=== PATIENT | male | born 1970 | race Caucasian/White ===

== ENCOUNTER → 2016-07-20 | Outpatient (CLI) | payer MEDICAID, OTHER ==
--- NOTE | 2016-07-20 16:23 | REP ---
Chest two views HISTORY: Bronchitis Comparison: None The lungs are clear. The heart is normal in size. The pulmonary vasculature is normal in appearance. Degenerative change is present in the thoracic spine. IMPRESSION: No acute disease.
== END ==
LOC: M CLY 15:43
PROVIDERS: ATTEND Nurse Practitioner Family
DX: J40 Bronchitis, not specified as acute or chronic (principal)

== ENCOUNTER → 2018-01-19 | Outpatient (REF) | payer MEDICAID | LOC: M SFHCCLAY 10:24 | DX: I48.0 Paroxysmal atrial fibrillation (principal) ==

== ENCOUNTER → 2018-01-26 | Outpatient (REF) | payer MEDICAID | LOC: M SFHCCLAY 09:12 | DX: I48.0 Paroxysmal atrial fibrillation (principal) ==

== ENCOUNTER → 2018-02-13 | Outpatient (CLI) | payer MEDICAID, OTHER | LOC: M CARPUL 10:27 | DX: I48.0 Paroxysmal atrial fibrillation (principal) | CPT/HCPCS: 93306 ==

== ENCOUNTER → 2018-02-16 | Outpatient (REF) | payer OTHER, MEDICAID ==
[2018-02-16 18:36] LABS: ALBUMIN 4.5 GM/DL (3.2-5.2); ALBUMIN/GLOBULIN RATIO 1.29 (1.00-1.93); ALKALINE PHOSPHATASE 66 U/L (45-117); ALT/SGPT 55 U/L (12-78); ANION GAP 5 MEQ/L (8-16); AST/SGOT 23 U/L (7-37); BILIRUBIN,TOTAL 0.9 MG/DL (0.2-1.0); BLOOD UREA NITROGEN 24 MG/DL (7-18); CALCIUM LEVEL 9.4 MG/DL (8.5-10.1); CARBON DIOXIDE LEVEL 30 MEQ/L (21-32); CHLORIDE LEVEL 104 MEQ/L (98-107); CHOLESTEROL LEVEL 142 MG/DL (<200); CHOLESTEROL RISK RATIO 2.253 (<5); CREATININE FOR GFR 0.78 MG/DL (0.70-1.30); FREE T4 0.97 NG/DL (0.76-1.46); GLOMERULAR FILTRATION RATE > 60.0 (>56); GLUCOSE, FASTING 99 MG/DL (70-100); HDL CHOLESTEROL 63 MG/DL (>40); LDL CHOLESTEROL 74 MG/DL (<100); NON-HDL-C 79 MG/DL; POTASSIUM SERUM 5.1 MEQ/L (3.5-5.1); SODIUM LEVEL 139 MEQ/L (136-145); THYROID STIMULATING HORMONE 0.551 uIU/ML (0.358-3.740); TRIGLYCERIDES LEVEL 25 MG/DL (<150)
[2018-02-16 18:44] LABS: BASO # 0.1 10^3/uL (0.0-0.2); BASO % 0.9 % (0.0-1.0); EOS # 0.6 10^3/uL (0.0-0.50); EOS % 7.4 % (0.0-3.0); HEMATOCRIT 45.7 % (42.0-52.0); HEMOGLOBIN 14.8 g/dl (13.5-17.5); IMMATURE GRANULOCYTE % 0.3 % (0-3.0); LYMPH # 2.8 10^3/uL (1.5-4.5); LYMPH % 32.3 % (24.0-44.0); MEAN CORPUSCULAR HEMOGLOBIN 31.3 pg (27.0-33.0); MEAN CORPUSCULAR HGB CONC 32.4 g/dl (32.0-36.5); MEAN CORPUSCULAR VOLUME 96.6 fl (80.0-96.0); MONO # 0.6 10^3/uL (0.0-0.8); NEUTROPHILS # 4.5 10^3/uL (1.8-7.7); NEUTROPHILS % 52.1 % (36.0-66.0); PLATELET COUNT, AUTOMATED 262 10^3/uL (150-450); RED BLOOD COUNT 4.73 10^6/uL (4.30-6.10); RED CELL DISTRIBUTION WIDTH 13.9 % (11.5-14.5); WHITE BLOOD COUNT 8.6 10^3/uL (4.0-10.0)
== END ==
LOC: M SFHCCLAY 10:31
DX: I48.0 Paroxysmal atrial fibrillation (principal)
CPT/HCPCS: 84443

== ENCOUNTER 2020-02-09 21:04 | Emergency (ER) | payer MEDICAID, OTHER ==
[~2020-02-09] VITALS: Ht 185.4 cm; Wt 127.3 kg
[~2020-02-09 21:04] MED LIST: AMIO200T3 PO; ATIV1TAB7 PO; CART120C PO; ELIQ5TAB PO; GABA-1171 PO; HYDR-3713 PO; METO100T5 PO
[2020-02-09] MEDS ORDERED: HYDR-3716 PO (21:16)
[2020-02-09] MEDS ORDERED: LORazepam 1 MG TAB PO STA (21:51)
--- NOTE | 2020-02-09 22:44 | REPVR ---
PROCEDURE INFORMATION: Exam: CT Head Without Contrast Exam date and time: 02/09/2020 10:00 PM Age: 50 years old Clinical indication: Pain; Headache; Additional info: Altered mental status TECHNIQUE: Imaging protocol: Computed tomography of the head without contrast. Radiation optimization: All CT scans at this facility use at least one of these dose optimization techniques: automated exposure control; mA and/or kV adjustment per patient size (includes targeted exams where dose is matched to clinical indication); or iterative reconstruction. COMPARISON: No relevant prior studies available. FINDINGS: Brain: Normal. No hemorrhage. Unremarkable white matter. No mass effect. Cerebral ventricles: No ventriculomegaly. Bones/joints: Unremarkable. No acute fracture. Paranasal sinuses: Visualized sinuses are unremarkable. No fluid levels. Mastoid air cells: Visualized mastoid air cells are well aerated. Soft tissues: Unremarkable. IMPRESSION: No acute intracranial abnormality. Electronically signed by: Harshil Junior On 02/09/2020 22:44:30 PM
[2020-02-09 23:36] LABS: BASO % 0.4 % (0.0-1.0); EOS % 0.1 % (0.0-3.0); HEMOGLOBIN 13.4 g/dl (13.5-17.5); LYMPH # 1.1 10^3/uL (1.5-5.0); LYMPH % 9.6 % (24.0-44.0); MEAN CORPUSCULAR HEMOGLOBIN 31.3 pg (27.0-33.0); MEAN CORPUSCULAR HGB CONC 32.7 g/dl (32.0-36.5); MEAN CORPUSCULAR VOLUME 95.8 fl (80.0-96.0); MONO # 0.7 10^3/uL (0.0-0.8); MONO % 6.3 % (0.0-5.0); NEUTROPHILS # 9.2 10^3/uL (1.5-8.5); NEUTROPHILS % 83.2 % (36.0-66.0); PLATELET COUNT, AUTOMATED 289 10^3/uL (150-450); RED BLOOD COUNT 4.28 10^6/uL (4.30-6.10)
[2020-02-09 23:52] LABS: ACETAMINOPHEN LEVEL < 2.0 UG/ML (10.0-30.0); ALBUMIN 4.1 GM/DL (3.2-5.2); ALT/SGPT 47 U/L (12-78); BILIRUBIN,DIRECT 0.2 MG/DL (0.0-0.2); BILIRUBIN,TOTAL 0.5 MG/DL (0.2-1.0); BLOOD UREA NITROGEN 9 MG/DL (7-18); CALCIUM LEVEL 9.1 MG/DL (8.5-10.1); CARBON DIOXIDE LEVEL 29 MEQ/L (21-32); CHLORIDE LEVEL 108 MEQ/L (98-107); CK-MB VALUE MASS 2.5 NG/ML (<3.6); CPK CREATINE PHOSPHOKINASE 181 U/L (39-308); CREATININE FOR GFR 0.73 MG/DL (0.70-1.30); ETHYL ALCOHOL (ETHANOL) < 0.003 % (0.000-0.010); GLOMERULAR FILTRATION RATE > 60.0 (>56); GLUCOSE, FASTING 128 MG/DL (70-100); MB/CK RELATIVE INDEX 1.38 (< OR =4); SALICYLATE LEVEL < 1.7 MG/DL (5.0-30.0); SODIUM LEVEL 142 MEQ/L (136-145); TOTAL PROTEIN 7.3 GM/DL (6.4-8.2); TROPONIN I < 0.02 NG/ML (< 0.10)
[2020-02-09 23:59] VITALS: BP 122/68
[2020-02-10] LABS: AMPHETAMINES LEVEL URINE NEGATIVE (NEGATIVE); BARBITURATES URINE NEGATIVE (NEGATIVE); BENZODIAZEPINES URINE NEGATIVE (NEGATIVE); CANNABINOIDS URINE POSITIVE (NEGATIVE); COCAINE METABOLITE URINE NEGATIVE (NEGATIVE); METHADONE URINE NEGATIVE (NEGATIVE); OPIATES URINE NEGATIVE (NEGATIVE); PHENCYCLIDINE URINE NEGATIVE (NEGATIVE)
== END 2020-02-10 00:11 | disposition home or self-care (01) ==
LOC: M ED 21:04
DX: R56.9 Unspecified convulsions (principal); I25.10 Atherosclerotic heart disease of native coronary artery without angina pectoris; Z79.899 Other long term (current) drug therapy; Z79.01 Long term (current) use of anticoagulants
CPT/HCPCS: 36415; 70450; 80048; 80076; 80307; 82550; 82553; 83605; 85025; 93041; 94760; 99284; G0480

== ENCOUNTER 2020-12-12 15:33 | Inpatient (IN) | payer MEDICAID, OTHER ==
[2020-12-12] VITALS (13 sets, daily range): BP systolic 78–191; BP diastolic 54–131
[~2020-12-12] VITALS: Ht 182.9 cm; Wt 99.9 kg
[~2020-12-12 15:33] MED LIST changes: +HYDR-3716 PO
[2020-12-12] MEDS ORDERED: NS 1,000 ML IV ONE (15:50)
[2020-12-12] MEDS: NOREPINEPHRINE BITARTRATE 8 MG in D5W 492 ML IV SCH ×3 (16:11→17:02)
--- NOTE | 2020-12-12 16:32 | REP ---
INDICATION: CHEST PAIN. COMPARISON: PA and lateral chest, 07/20/2016. TECHNIQUE: Upright AP portable chest image was obtained. FINDINGS: There is cardiomegaly, pulmonary venous hypertension and pulmonary interstitial edema consistent with congestive heart failure. There are no pleural effusions. There is an endotracheal tube present with the tip 4.5 cm above the yen. The upper abdominal bowel gas pattern is normal. There are no bony abnormalities of the chest. IMPRESSION: 1. Congestive heart failure. 2. Endotracheal tube with the tip 4.5 cm above the yen. <Electronically signed by Paulie Pritchard > 12/12/20 [id number]
[2020-12-12 17:23] LABS: HEMATOCRIT 38.8 % (42.0-52.0); HEMOGLOBIN 11.8 g/dl (13.5-17.5); MEAN CORPUSCULAR HEMOGLOBIN 31.8 pg (27.0-33.0); MEAN CORPUSCULAR HGB CONC 30.4 g/dl (32.0-36.5); MEAN CORPUSCULAR VOLUME 104.6 fl (80.0-96.0); PLATELET COUNT, AUTOMATED 264 10^3/uL (150-450); RED BLOOD COUNT 3.71 10^6/uL (4.30-6.10); WHITE BLOOD COUNT 9.2 10^3/uL (4.0-10.0)
[2020-12-12] MEDS ORDERED: LIDOCAINE 2% 5ML JELLY UROJET TOP ONE (17:25)
[2020-12-12 17:27] LABS: OSMOLALITY SERUM 300 MOSM/KG (275-295)
[2020-12-12 17:30] LABS: ALBUMIN 2.9 GM/DL (3.2-5.2); ALT/SGPT 191 U/L (12-78); BILIRUBIN,DIRECT 0.2 MG/DL (0.0-0.2); BILIRUBIN,TOTAL 0.5 MG/DL (0.2-1.0); BLOOD UREA NITROGEN 14 MG/DL (7-18); CALCIUM LEVEL 7.8 MG/DL (8.5-10.1); CARBON DIOXIDE LEVEL 18 MEQ/L (21-32); CHLORIDE LEVEL 107 MEQ/L (98-107); CK-MB VALUE MASS 2.9 NG/ML (<3.6); CPK CREATINE PHOSPHOKINASE 365 U/L (39-308); CREATININE FOR GFR 1.26 MG/DL (0.70-1.30); FREE T4 0.85 NG/DL (0.76-1.46); GLOMERULAR FILTRATION RATE > 60.0 (>56); GLUCOSE, FASTING 166 MG/DL (70-100); LIPASE 208 U/L (73-393); MB/CK RELATIVE INDEX 0.79 (< OR =4); NT-PRO BNP 264 PG/ML (<125); POTASSIUM SERUM 5.2 MEQ/L (3.5-5.1); SODIUM LEVEL 141 MEQ/L (136-145); TOTAL PROTEIN 5.7 GM/DL (6.4-8.2); TROPONIN I 0.06 NG/ML (< 0.10)
[2020-12-12 17:31] LABS: ACETAMINOPHEN LEVEL < 2.0 UG/ML (10.0-30.0); ETHYL ALCOHOL (ETHANOL) < 0.003 % (0.000-0.010); SALICYLATE LEVEL < 1.7 MG/DL (5.0-30.0)
[2020-12-12] MEDS ORDERED: LABETALOL 100MG/20ML VIAL IV STA (17:39)
[2020-12-12 17:40] LABS: INR 1.27; PROTHROMBIN TIME 16.3 SECONDS (12.7-14.5)
--- NOTE | 2020-12-12 17:53 | REPVR ---
PROCEDURE INFORMATION: Exam: CT Abdomen And Pelvis Without Contrast Exam date and time: 12/12/2020 5:24 PM Age: 50 years old Clinical indication: Condition or disease; Other: Arrest TECHNIQUE: Imaging protocol: Computed tomography of the abdomen and pelvis without contrast. Radiation optimization: All CT scans at this facility use at least one of these dose optimization techniques: automated exposure control; mA and/or kV adjustment per patient size (includes targeted exams where dose is matched to clinical indication); or iterative reconstruction. COMPARISON: [place] PORTABLE CHEST X-RAY 12/12/2020 3:56 PM FINDINGS: Tubes, catheters and devices: Distal tip of the nasogastric tube position in the gastric fundus. Lungs: Subsegmental atelectasis and consolidation at both lung bases, right side greater than left Liver: Normal. No mass. Gallbladder and bile ducts: Normal. No calcified stones. No ductal dilation. Pancreas: Normal. No ductal dilation. Spleen: Normal. No splenomegaly. Adrenal glands: Normal. No mass. Kidneys and ureters: Minimal fullness of the central renal pelvis of both kidneys, right greater than left. No renal calculi. Stomach and bowel: Dilated air/fluid/stool large and small bowel loops present. Moderate amount of stool in the rectal vault. Appendix: No evidence of appendicitis. Intraperitoneal space: Unremarkable. No free air. No significant fluid collection. Vasculature: Unremarkable. No abdominal aortic aneurysm. Lymph nodes: Unremarkable. No enlarged lymph nodes. Urinary bladder: Piña catheter present in the bladder. The bladder is decompressed and a small amount of air seen in the bladder. Reproductive: Unremarkable as visualized. Bones/joints: Degenerative changes of the thoracolumbar spine. Soft tissues: Very small bilateral inguinal hernias containing fat with no signs of strangulation. IMPRESSION: 1. Generalized ileus 2. Subsegmental atelectasis and consolidation in the dependent portion of the right lung bases. 3. Minimal fullness of the central renal pelvis of both kidneys, right greater than left. The bladder is decompressed. No renal or ureteral calculi. Electronically signed by: Yandy Velazquez On 12/12/2020 17:53:21 PM
[2020-12-12 17:55] LABS: AMYLASE 134 U/L (25-115); MAGNESIUM LEVEL 2.5 MG/DL (1.8-2.4)
[2020-12-12 17:57] LABS: AMPHETAMINES LEVEL URINE NEGATIVE (NEGATIVE); BARBITURATES URINE NEGATIVE (NEGATIVE); BENZODIAZEPINES URINE NEGATIVE (NEGATIVE); CANNABINOIDS URINE POSITIVE (NEGATIVE); COCAINE METABOLITE URINE NEGATIVE (NEGATIVE); METHADONE URINE NEGATIVE (NEGATIVE); OPIATES URINE POSITIVE (NEGATIVE); PHENCYCLIDINE URINE NEGATIVE (NEGATIVE)
[2020-12-12 18:11] LABS: ATYPICAL LYMPH 13 % (0-5); BLAST CELLS 1 % (0-0); EOSINOPHILS 4 % (0-3); LYMPHOCYTES 20 % (16-44); METAMYELOCYTES 1 % (0-0); MONOCYTES 2 % (0-5); NEUTROPHILS 52 % (28-66); PLATELET ESTIMATE NORMAL (NORMAL)
--- NOTE | 2020-12-12 18:15 | REPVR ---
PROCEDURE INFORMATION: Exam: CT Chest Without Contrast; Diagnostic Exam date and time: 12/12/2020 5:24 PM Age: 50 years old Clinical indication: Other: Arrest TECHNIQUE: Imaging protocol: Diagnostic computed tomography of the chest without contrast. Radiation optimization: All CT scans at this facility use at least one of these dose optimization techniques: automated exposure control; mA and/or kV adjustment per patient size (includes targeted exams where dose is matched to clinical indication); or iterative reconstruction. COMPARISON: [facility] PORTABLE CHEST X-RAY 12/12/2020 3:56 PM FINDINGS: Tubes, catheters and devices: Distal tip of an endotracheal tube 3.4 cm above the yen. There is a nasogastric tube with the distal tip in the gastric fundus. Lungs: Subpleural atelectasis/consolidation in the dependent portion of both lung bases.. Pleural based nodule right upper lobe measuring 7.6 mm (series 404, image 50). Debris in the trachea along its dependent surface above the yen Pleural spaces: Unremarkable. No pneumothorax. No pleural effusion. Heart: Minimal coronary artery calcific. Aorta: Unremarkable. No aortic aneurysm. Lymph nodes: Unremarkable. No enlarged lymph nodes. Diaphragm: eventration of the right hemidiaphragm. Bones/joints: There is a fracture of the mid sternal body. Soft tissues: Small hematoma noted in the superficial soft tissues overlying the sternal fracture. Few bubbles of air noted with the iatrogenic IMPRESSION: 1. Fracture of the mid sternal body with very small hematoma in the superficial soft tissues of the anterior chest wall No pneumothorax.. 2. Atelectasis in the dependent portion of the lung bases bilaterally. 3. Pleural based nodule right upper lobe.For patients at low risk (minimal or absent history of smoking and of other known risk factors), recommend CT Chest at 6-12 months, then consider CT Chest at 18-24 months. For patients at high risk (history of smoking or of other known risk factors), recommend CT Chest at 6-12 months, then CT Chest at 18-24 months. (Reference: Andrew) References: Andrew Flores et al. Guidelines for Management of Incidental Pulmonary Nodules Detected on CT Images: From the Fleischner Society 2017. Radiology. 2017;284(1):228-243. Electronically signed by: Yandy Velazquez On 12/12/2020 18:15:14 PM
[2020-12-12 18:16] LABS: D-DIMER QUANT > 4000 ng/ml (<500)
--- NOTE | 2020-12-12 18:19 | REPVR ---
PROCEDURE INFORMATION: Exam: CT Head Without Contrast Exam date and time: 12/12/2020 5:24 PM Age: 50 years old Clinical indication: Other: Arrest; Additional info: Drug overdose TECHNIQUE: Imaging protocol: Computed tomography of the head without contrast. Radiation optimization: All CT scans at this facility use at least one of these dose optimization techniques: automated exposure control; mA and/or kV adjustment per patient size (includes targeted exams where dose is matched to clinical indication); or iterative reconstruction. COMPARISON: CT Head without contrast 02/09/2020 9:56 PM FINDINGS: Brain: There is a diffuse brain edema. Midline structures intact. The vessels appear unusually dense which is a consequence of the marked brain edema. Cerebral ventricles: No ventriculomegaly. Paranasal sinuses: Mucosal thickening in the maxillary sinuses bilaterally. Opacification of the ethmoid air cells bilaterally. Mastoid air cells: Visualized mastoid air cells are well aerated. Bones/joints: Unremarkable. No acute fracture. Soft tissues: Unremarkable. IMPRESSION: 1. Diffuse brain edema 2. Chronic paranasal sinusitis. Electronically signed by: Yandy Velazquez On 12/12/2020 18:18:48 PM
--- NOTE | 2020-12-12 18:28 | REPVR ---
PROCEDURE INFORMATION: Exam: CT Cervical Spine Without Contrast Exam date and time: 12/12/2020 5:24 PM Age: 50 years old Clinical indication: Condition or disease; Other: Arrest; Additional info: Drug overdose TECHNIQUE: Imaging protocol: Computed tomography images of the cervical spine without contrast. Radiation optimization: All CT scans at this facility use at least one of these dose optimization techniques: automated exposure control; mA and/or kV adjustment per patient size (includes targeted exams where dose is matched to clinical indication); or iterative reconstruction. COMPARISON: CT Head without contrast 02/09/2020 9:56 PM FINDINGS: Vertebrae: No acute fracture. Normal alignment. C2-C3: No significant disc protrusion. No severe spinal canal stenosis. No significant neural foraminal narrowing. C3-C4: No significant disc protrusion. No severe spinal canal stenosis. No significant neural foraminal narrowing. C4-C5: No significant disc protrusion. No severe spinal canal stenosis. No significant neural foraminal narrowing. C5-C6: No significant disc protrusion. Mild uncovertebral hypertrophy. No severe spinal canal stenosis. No significant neural foraminal narrowing. C6-C7: No significant disc protrusion. Mild uncovertebral No severe spinal canal stenosis. No significant neural foraminal narrowing. C7-T1: No significant disc protrusion. No severe spinal canal stenosis. No significant neural foraminal narrowing. Soft tissues: Unremarkable. Sinuses: Paranasal sinuses: Mucous thickening within the maxillary and ethmoid air cells. Lungs: Lung apices are normal. Other findings: An endotracheal tube is present. Orogastric tube is present. IMPRESSION: 1. No acute findings. 2. Mild degenerative disc disease 3. Chronic paranasal sinusitis Electronically signed by: Yandy Velazquez On 12/12/2020 18:28:24 PM
[2020-12-12] MEDS ORDERED: METO50TA7 PO (19:03)
[2020-12-12] MEDS ORDERED: LORA2TAB14 PO (19:08)
[2020-12-12 19:10] LABS: RSV AMPLIFICATION NEGATIVE (NEGATIVE)
[2020-12-12] MEDS ORDERED: LACRILUBE (AKWA TEARS) OPHTH OINT 3.5 GM OU PRN (19:25)
[2020-12-12] MEDS ORDERED: ACETAMINOPHEN 650 MG SUPP PR ONE (19:25)
[2020-12-12] MEDS ORDERED: ACETAMINOPHEN 650 MG SUPP PR PRN (19:25)
[2020-12-12] MEDS ORDERED: MIDAZOLAM INJ 2MG/2ML VIAL (J2250 PER 1MG) IV PRN (19:25)
[2020-12-12] MEDS ORDERED: med rec comment (19:46)
[2020-12-12] MEDS ORDERED: HOME MED LIST COMPLETE! XX SCH (19:50)
[2020-12-12] MEDS ORDERED: MORPHINE 2 MG/ML 1ML VIAL (J2270) IV PRN (20:00)
[2020-12-12] MEDS: IPRATROPIUM 0.5MG/ALBUTEROL 2.5MG INH SOL UD 3ML (DUONEB) NEB SCH (20:00)
[2020-12-12] MEDS: METOPROLOL 5 MG/5 ML VIAL IV SCH ×3 (20:03→23:38)
--- NOTE | 2020-12-12 20:33 | CCN ---
CRITICAL CARE ADMISSION NOTE DATE: 12/12/2020 START TIME: 1899. STOP TIME: 1943. HISTORY OF PRESENT ILLNESS: I was called to attend Damon Simmons. This is a 50-year-old gentleman with a history of vascular disease, chronic pain syndrome, found down at home by family. He was down for an unknown period of time. Family started cardiopulmonary resuscitation (CPR). About a 20 minute transportation time. In the emergency room, he was intubated. It should be noted he required no sedation for intubation. On arrival, pupils were fixed and dilated. He did have return of spontaneous circulation, however. Central line placed by the emergency room (ER). Initially, he was hypotensive. He was given intravenous (IV) fluids and some Levophed and eventually he became profoundly hypertensive, actually requiring labetalol. Initial evaluation with CT scan showed diffuse cerebral edema. CT scan of the chest showed some basilar atelectasis. No other acute findings were identified on essentially entire scan of the body. PHYSICAL EXAMINATION: Currently, heart rate 140 at times, generally 110, atrial fibrillation. Blood pressure currently 180 systolic. At times, he does overbreathe the ventilator. He does have a gag. The remainder of the exam, however, shows pupils are fixed and dilated. There are no corneals. He does not respond to painful stimuli. Trachea is in the midline. Chest is clear anteriorly. No focal adventitious breath sounds are identified. Cardiac exam is tachycardic, regular. Peripheral pulses palpable. No obvious edema. Abdomen soft. There are hypoactive bowel sounds. Extremities show no cyanosis or clubbing. Neurologic is as outlined above. LABORATORY DATA: Most recent laboratories show white blood cell count of 9.2, hemoglobin 11.8, platelet count of 264,000, 52% segs, 7% bands. Sodium 141, potassium 5.2, chloride 107, bicarbonate 18, BUN 14, creatinine 1.26, osmolality mildly high at 300, lactic acid 7.2. Phosphorus 10, magnesium 2.5, and these are being repeated. AST 208, ALT 191. CK 365. Troponin 0.06. BNP 264. Amylase 134. Respiratory panel negative. First blood gas in the emergency room (ER) showed a pH of 6.914 with a pCO2 of 87.8 and a pO2 of 131. Ventilator manipulations were made by the ER and his most recent blood gas done at 1641 hours has a pH of 7.090, pCO2 of 60.4 and a pO2 of 124. Ventilator changes were made by myself. I have reviewed his scans. CT scan of the head shows profound diffuse edema with loss of interface of the chambers and white matter. There is diffuse, what appears to be, a trace of subarachnoid blood, but in talking with the interpreting radiologist, this is felt to be all on the basis of his cerebral edema. MEDICATION LIST FROM HOME: Does include: - Eliquis - Ativan - hydrocodone Toxicology screen done here positive only for opiates and cannabinoids. IMPRESSION: 1. 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 2. Cannot rule out drug ingestion. 3. Status post cardiac arrest. 4. Profound metabolic acidosis. 5. Hyperphosphatemia. 6. Atrial fibrillation RECOMMENDATIONS: At this point, I have spoken at length with Dr. New. She has had very marcus discussions with the family regarding the fact that his prognosis is quite grim and he will likely progress to brain . Given his presentation, unfortunately I think the best case scenario is a chronic vegetative state. He has had some lability in his blood pressure, which is a bad prognostic indicator early on. He has not had any seizures. Despite the fact that this was an unwitnessed arrest, I believe to give him his best chance, we will proceed with hypothermia protocol. Given his other presentation, we will add antibiotics empirically as there is a high likelihood he may have aspirated. We will continue with IV hydration. The hypothermia protocol will be followed. Also, deep venous thrombosis (DVT) prophylaxis is in place. We will use vasoactive agents as needed to keep his blood pressure within reasonable limits. My concern is that they become more labile as time goes on. Approprite meds for rate control for his atrial fibrillation At this point, he remains critically ill and his survival, unfortunately, is not expected. I left the bedside at 1944 hours. A total of 44 minutes of critical care time spent at the bedside, not including procedures. ASHISH
[2020-12-12] MEDS: LACRILUBE (AKWA TEARS) OPHTH OINT 3.5 GM OU SCH (21:00)
[2020-12-12] MEDS: HEPARIN SOD (PORCINE) 5000UNITS/ML 1ML VIAL/SYRINGE SC SCH (21:43)
[2020-12-12] MEDS: METOPROLOL TART 50 MG TAB PO SCH (21:44)
[2020-12-12] MEDS: CHLORHEXIDINE GLUCONATE 0.12 % 15ML UDC (PERIDEX ORAL RINSE) MT SCH (21:45)
[2020-12-12] MEDS: NS 1,000 ML IV SCH (21:46)
[2020-12-12 22:46] LABS: HEMATOCRIT 47.9 % (42.0-52.0); MEAN CORPUSCULAR HGB CONC 32.4 g/dl (32.0-36.5); PLATELET COUNT, AUTOMATED 293 10^3/uL (150-450); RED BLOOD COUNT 4.84 10^6/uL (4.30-6.10); WHITE BLOOD COUNT 13.9 10^3/uL (4.0-10.0)
[2020-12-12 22:51] LABS: HEMOGLOBIN 15.5 g/dl (13.5-17.5)
[2020-12-12 23:00] LABS: INR 1.1; PROTHROMBIN TIME 14.6 SECONDS (12.7-14.5)
[2020-12-12 23:01] LABS: PARTIAL THROMBOPLASTIN TIME 32.6 SECONDS (25.9-37.0)
[2020-12-12 23:11] LABS: ALBUMIN 3.7 GM/DL (3.2-5.2); BILIRUBIN,TOTAL 0.5 MG/DL (0.2-1.0); CALCIUM LEVEL 7.9 MG/DL (8.5-10.1); CREATININE FOR GFR 1.65 MG/DL (0.70-1.30); GLOMERULAR FILTRATION RATE 46.9 (>56); MAGNESIUM LEVEL 2.2 MG/DL (1.8-2.4); PHOSPHORUS LEVEL 4.1 MG/DL (2.5-4.9); POTASSIUM SERUM 4.3 MEQ/L (3.5-5.1); TOTAL PROTEIN 6.9 GM/DL (6.4-8.2)
[2020-12-12 23:30] LABS: ABG BASE EXCESS -5.9 (-2.0-2.0); ABG HCO3 19.2 MEQ/L (22.0-26.0); ABG O2 SATURATION 95.4 % (95.0-99.0); ABG PARTIAL PRESSURE CO2 36.9 mmHg (35.0-45.0); ABG PARTIAL PRESSURE O2 78.4 mmHg (75.0-100.0); ABG STANDARD HCO3 19.7 MEQ/L (22.0-26.0); ABG TOTAL CO2 20.3 MEQ/L (22.0-29.0); ABG pH (ARTERIAL) 7.334 UNITS (7.350-7.450)
[2020-12-13] VITALS (50 sets, daily range): BP systolic 71–170; BP diastolic 51–102
[2020-12-13] MEDS ORDERED: NS 1,000 ML IV ONE (00:05)
[2020-12-13] MEDS: IPRATROPIUM 0.5MG/ALBUTEROL 2.5MG INH SOL UD 3ML (DUONEB) NEB SCH ×7 (00:19→23:54)
[2020-12-13 02:23] LABS: HEMATOCRIT 45.1 % (42.0-52.0); HEMOGLOBIN 14.3 g/dl (13.5-17.5); MEAN CORPUSCULAR HEMOGLOBIN 31.8 pg (27.0-33.0); MEAN CORPUSCULAR HGB CONC 31.7 g/dl (32.0-36.5); MEAN CORPUSCULAR VOLUME 100.2 fl (80.0-96.0); PLATELET COUNT, AUTOMATED 266 10^3/uL (150-450); WHITE BLOOD COUNT 12.5 10^3/uL (4.0-10.0)
[2020-12-13 02:24] LABS: ABG BASE EXCESS -5.8 (-2.0-2.0); ABG HCO3 20.8 MEQ/L (22.0-26.0); ABG O2 SATURATION 91.8 % (95.0-99.0); ABG PARTIAL PRESSURE CO2 44.7 mmHg (35.0-45.0); ABG PARTIAL PRESSURE O2 67.6 mmHg (75.0-100.0); ABG STANDARD HCO3 19.6 MEQ/L (22.0-26.0); ABG TOTAL CO2 22.1 MEQ/L (22.0-29.0); ABG pH (ARTERIAL) 7.285 UNITS (7.350-7.450)
[2020-12-13 02:35] LABS: INR 1.15; PROTHROMBIN TIME 15.1 SECONDS (12.7-14.5)
[2020-12-13 02:36] LABS: PARTIAL THROMBOPLASTIN TIME 33.5 SECONDS (25.9-37.0)
[2020-12-13 02:55] LABS: ALBUMIN 3.1 GM/DL (3.2-5.2); BILIRUBIN,TOTAL 0.3 MG/DL (0.2-1.0); CALCIUM LEVEL 7.6 MG/DL (8.5-10.1); CREATININE FOR GFR 1.68 MG/DL (0.70-1.30); GLOMERULAR FILTRATION RATE 45.9 (>56); PHOSPHORUS LEVEL 3.8 MG/DL (2.5-4.9); POTASSIUM SERUM 4.1 MEQ/L (3.5-5.1); TOTAL PROTEIN 6.6 GM/DL (6.4-8.2)
[2020-12-13] MEDS: NOREPINEPHRINE BITARTRATE 8 MG in D5W 492 ML IV SCH (03:06)
[2020-12-13] MEDS: NS 1,000 ML IV SCH ×2 (04:00→10:34)
[2020-12-13] MEDS: HEPARIN SOD (PORCINE) 5000UNITS/ML 1ML VIAL/SYRINGE SC SCH ×3 (05:18→21:57)
[2020-12-13 06:21] LABS: BASO % 0.1 % (0.0-1.0); HEMATOCRIT 44.3 % (42.0-52.0); HEMOGLOBIN 14.1 g/dl (13.5-17.5); LYMPH # 0.6 10^3/uL (1.5-5.0); LYMPH % 4.5 % (24.0-44.0); MEAN CORPUSCULAR HEMOGLOBIN 31.8 pg (27.0-33.0); MEAN CORPUSCULAR HGB CONC 31.8 g/dl (32.0-36.5); MEAN CORPUSCULAR VOLUME 99.8 fl (80.0-96.0); MONO # 0.8 10^3/uL (0.0-0.8); MONO % 5.6 % (2.0-8.0); NEUTROPHILS # 12.2 10^3/uL (1.5-8.5); NEUTROPHILS % 89.3 % (36.0-66.0); PLATELET COUNT, AUTOMATED 296 10^3/uL (150-450); RED BLOOD COUNT 4.44 10^6/uL (4.30-6.10); WHITE BLOOD COUNT 13.6 10^3/uL (4.0-10.0)
[2020-12-13 06:42] LABS: ABG BASE EXCESS -4.4 (-2.0-2.0); ABG HCO3 22.4 MEQ/L (22.0-26.0); ABG O2 SATURATION 96.3 % (95.0-99.0); ABG PARTIAL PRESSURE CO2 48.2 mmHg (35.0-45.0); ABG PARTIAL PRESSURE O2 84.9 mmHg (75.0-100.0); ABG STANDARD HCO3 20.8 MEQ/L (22.0-26.0); ABG TOTAL CO2 23.9 MEQ/L (22.0-29.0); ABG pH (ARTERIAL) 7.286 UNITS (7.350-7.450); INR 1.14; PARTIAL THROMBOPLASTIN TIME 34.4 SECONDS (25.9-37.0); PROTHROMBIN TIME 15.1 SECONDS (12.7-14.5)
[2020-12-13 06:46] LABS: BILIRUBIN,TOTAL 0.3 MG/DL (0.2-1.0); CALCIUM LEVEL 7.1 MG/DL (8.5-10.1); CREATININE FOR GFR 1.59 MG/DL (0.70-1.30); GLOMERULAR FILTRATION RATE 48.9 (>56); MAGNESIUM LEVEL 2.1 MG/DL (1.8-2.4); PHOSPHORUS LEVEL 4.1 MG/DL (2.5-4.9); POTASSIUM SERUM 3.9 MEQ/L (3.5-5.1); TOTAL PROTEIN 6.3 GM/DL (6.4-8.2)
--- NOTE | 2020-12-13 08:06 | ECGEPIP ---
[facility] Test Date: 2020-12-13 Pat Name: JESICA BROOKE Department: Room: [place] [address] Gender: Male Marker Hand: rosalind : 1970 Requested By: Stiven Luevano Order Number: [id number] Reading MD: Ching Ha Measurements Intervals [place] Rate: 92 P: 71 ND: 148 QRS: 35 QRSD: 90 T: 48 QT: 388 QTc: 479 Interpretive Statements Normal sinus rhythm PROLONGED QTC DIFFUSE ST ABN AGAIN PRESENT SIGHT AXIS CHANGE PREVIOUSLY A FIB C/W 12/12/20 Electronically Signed on 12-13-2020 8:05:18 EDT by Ching Ha
--- NOTE | 2020-12-13 08:23 | ECGEPIP ---
[facility] - ED Test Date: 2020-12-12 Pat Name: JESICA BROOKE Department: Room: - Gender: Male Dermatopathologist: luis carlos : 1970 Requested By: Courtney Tran Order Number: [id number] Reading MD: Yovani Luna Measurements Intervals [place] Rate: 94 P: MT: QRS: 19 QRSD: 110 T: -17 QT: 428 QTc: 535 Interpretive Statements Atrial fibrillation INCOMPLETE RIGHT BUNDLE BRANCH BLOCK Cannot rule out Inferior infarct , age undetermined Prolonged QT NO PRIORS FOR COMPARISON Electronically Signed on 12-13-2020 8:23:21 EDT by Yovani Luna
--- NOTE | 2020-12-13 08:29 | REP ---
INDICATION: Resp failure. COMPARISON: Multiple the latest 12/12/2020 at 3:58 p.m. TECHNIQUE: Portable FINDINGS: The technique utilized in obtaining the radiograph has magnified the cardiac silhouette and accentuated the interstitial markings. Since the last examination a nasogastric tube is been placed the proximal port of which appears to be just distal to the gastroesophageal junction. There is no significant change in appearance of the endotracheal tube. The cardiomediastinal silhouette and lung sanon are unchanged. No acute patchy parenchymal opacities or pleural effusions have developed. There is no significant change in appearance of the osseous structures. IMPRESSION: Tubes as described above. No significant change in appearance of the lung sanon. Mild interstitial edema accentuated by technique cannot be ruled out. <Electronically signed by Salvatore Rabago > 12/13/20 [id number]
[2020-12-13] MEDS: PANTOPRAZOLE 40MG VIAL (C9113 PER 1) IV SCH (08:45)
[2020-12-13] MEDS: CHLORHEXIDINE GLUCONATE 0.12 % 15ML UDC (PERIDEX ORAL RINSE) MT SCH ×2 (08:46→20:09)
[2020-12-13] MEDS ORDERED: PANTOPRAZOLE 40MG VIAL (C9113 PER 1) IV SCH (09:00)
[2020-12-13] MEDS: LACRILUBE (AKWA TEARS) OPHTH OINT 3.5 GM OU SCH ×3 (09:00→20:10)
[2020-12-13] MEDS: METOPROLOL TART 50 MG TAB PO SCH ×3 (09:00→20:09)
[2020-12-13 10:05] LABS: HEMATOCRIT 43.2 % (42.0-52.0); HEMOGLOBIN 13.6 g/dl (13.5-17.5); MEAN CORPUSCULAR HEMOGLOBIN 31.3 pg (27.0-33.0); MEAN CORPUSCULAR HGB CONC 31.5 g/dl (32.0-36.5); MEAN CORPUSCULAR VOLUME 99.5 fl (80.0-96.0); PLATELET COUNT, AUTOMATED 287 10^3/uL (150-450); RED BLOOD COUNT 4.34 10^6/uL (4.30-6.10); WHITE BLOOD COUNT 12.8 10^3/uL (4.0-10.0)
--- NOTE | 2020-12-13 10:13 | CCN ---
CRITICAL CARE NOTE DATE: 12/12/2020 START TIME: 839 STOP TIME: 929 SUBJECTIVE: I attended Damon Simmons here in the intensive care unit. The patient has been examined, chart reviewed. I had very lengthy phone conversations both with his brother Jah, area code [phone] and the Tamika, area code [phone]. He did convert to sinus rhythm overnight. Currently his metoprolol is on hold as he is back on the Levophed. On exam this morning, his pupils are fixed and dilated. He is completely unresponsive to all painful stimuli. He had no corneal reflexes yesterday and what minimal cough and gag reflex he had yesterday is now absent. T max overnight 97.5. He is on hypothermia protocol. Blood pressure currently 90 to the 110s on Levophed. Heart rate currently 85 with a sinus mechanism. He does not overbreathe the ventilator. Is and Os midnight to midnight 2755 mL in with 4385 mL out. Most recent laboratories show a white blood cell count of 13.6, hemoglobin 14.1, platelet count of 296,000, 89% segs, no bands. Sodium 144, potassium 3.9, chloride 112, CO2 25, BUN 26, creatinine down to 1.59, glucose 162. Lactic acid cleared at 1.8. AST, ALT 190 and 220. Most recent blood gas done at a PRVC rate of 18, tidal volume 450, PEEP 5, FiO2 of 30%, shows a pH 7.286, pCO2 of 48.2 and a pO2 84.9. Coags show a PT of 15.1, INR 1.14 and a PTT of 34.4. OBJECTIVE: General: On exam, he is completely unresponsive. He has received no sedating medications. HEENT: Pupils are fixed and dilated. He has no corneal reflexes. No cough or gag. He is completely unresponsive to all stimuli. Membranes are moist. Trachea is in the midline. Lungs: Clear to auscultation and percussion. No convincing egophony. No focal adventitious breath sounds are identified. Cardiac: Currently regular. Peripheral pulses diminished but palpable. No edema. Abdomen: Soft. Hypoactive bowel sounds. No convincing organomegaly or masses. Extremities: No cyanosis or clubbing. Neurologic: As outlined above. Most pressing problems requiring my presence at the bedside: 1. Anoxic encephalopathy, status post cardiac arrest. 2. Suspected opiate overdose. 3. Atrial fibrillation, currently normal sinus rhythm. As per my discussions with his brother and his , the patient has unfortunately been struggling for some time with opiate addiction. reports that he appeared to be having a good morning. They were out for some time, came home and she found him unresponsive and immediately started CPR. I had a very lengthy discussion with her regarding his current status. He currently is under hypothermia protocol and we will begin rewarming tomorrow. After our discussion, she has requested, however, that should he have another cardiac arrest that he not be resuscitated from that and I believe that is quite appropriate. Most likely once he hits target temperature, we will perform brain criteria. We will continue our current level of support in the interim with the limitation set forth by the MOLST form. I ordered an echocardiogram. I did also inform the family that given his current status they will likely be contacted by the [facility]. Both Jah and Tamika are aware of that. We will proceed as outlined above. I left the bedside at 0930 hours. 50 minutes of critical care time were at the bedside, not including procedures.
[2020-12-13 10:16] LABS: ABG BASE EXCESS -3.2 (-2.0-2.0); ABG O2 SATURATION 94.8 % (95.0-99.0); ABG PARTIAL PRESSURE CO2 45.8 mmHg (35.0-45.0); ABG PARTIAL PRESSURE O2 74.8 mmHg (75.0-100.0); ABG STANDARD HCO3 21.7 MEQ/L (22.0-26.0); ABG TOTAL CO2 24.4 MEQ/L (22.0-29.0); ABG pH (ARTERIAL) 7.319 UNITS (7.350-7.450)
[2020-12-13 10:17] LABS: INR 1.14; PROTHROMBIN TIME 15.1 SECONDS (12.7-14.5)
[2020-12-13 10:18] LABS: PARTIAL THROMBOPLASTIN TIME 33.7 SECONDS (25.9-37.0)
[2020-12-13 10:34] LABS: ALBUMIN 2.8 GM/DL (3.2-5.2); ALT/SGPT 208 U/L (12-78); BILIRUBIN,TOTAL 0.2 MG/DL (0.2-1.0); BLOOD UREA NITROGEN 25 MG/DL (7-18); CALCIUM LEVEL 7.5 MG/DL (8.5-10.1); CARBON DIOXIDE LEVEL 22 MEQ/L (21-32); CHLORIDE LEVEL 117 MEQ/L (98-107); CREATININE FOR GFR 1.32 MG/DL (0.70-1.30); GLOMERULAR FILTRATION RATE > 60.0 (>56); GLUCOSE, FASTING 151 MG/DL (70-100); PHOSPHORUS LEVEL 3.8 MG/DL (2.5-4.9); POTASSIUM SERUM 4.2 MEQ/L (3.5-5.1); SODIUM LEVEL 147 MEQ/L (136-145); TOTAL PROTEIN 5.8 GM/DL (6.4-8.2)
[2020-12-13] MEDS: HumaLOG INSULIN (NovoLOG) PER UNIT SC SCH ×2 (12:00→18:26)
[2020-12-13] MEDS: D5W/0.2% SODIUM CHLORIDE 1,000 ML IV SCH ×2 (13:08→20:09)
[2020-12-13 13:48] LABS: HEMATOCRIT 44.3 % (42.0-52.0); HEMOGLOBIN 14.1 g/dl (13.5-17.5); MEAN CORPUSCULAR HEMOGLOBIN 31.6 pg (27.0-33.0); MEAN CORPUSCULAR HGB CONC 31.8 g/dl (32.0-36.5); MEAN CORPUSCULAR VOLUME 99.3 fl (80.0-96.0); PLATELET COUNT, AUTOMATED 297 10^3/uL (150-450); RED BLOOD COUNT 4.46 10^6/uL (4.30-6.10); WHITE BLOOD COUNT 14.2 10^3/uL (4.0-10.0)
[2020-12-13 13:59] LABS: INR 1.14
[2020-12-13 14:15] LABS: ALBUMIN 2.9 GM/DL (3.2-5.2); ALT/SGPT 207 U/L (12-78); BILIRUBIN,TOTAL 0.2 MG/DL (0.2-1.0); BLOOD UREA NITROGEN 23 MG/DL (7-18); CALCIUM LEVEL 7.6 MG/DL (8.5-10.1); CARBON DIOXIDE LEVEL 26 MEQ/L (21-32); CHLORIDE LEVEL 119 MEQ/L (98-107); CREATININE FOR GFR 1.24 MG/DL (0.70-1.30); GLOMERULAR FILTRATION RATE > 60.0 (>56); GLUCOSE, FASTING 147 MG/DL (70-100); PHOSPHORUS LEVEL 3.7 MG/DL (2.5-4.9); POTASSIUM SERUM 3.6 MEQ/L (3.5-5.1); SODIUM LEVEL 150 MEQ/L (136-145)
[2020-12-13] MEDS ORDERED: DEXTROSE 50% 50 ML SYRINGE IV PRN (14:20)
[2020-12-13] MEDS ORDERED: GLUCAGON INJ 1MG VIAL SC PRN (14:20)
[2020-12-13] MEDS ORDERED: GLUCOSE 4GM CHEW TABLET PO PRN (14:20)
[2020-12-13 14:42] LABS: ABG BASE EXCESS -3.4 (-2.0-2.0); ABG HCO3 23.1 MEQ/L (22.0-26.0); ABG O2 SATURATION 95.2 % (95.0-99.0); ABG PARTIAL PRESSURE CO2 46.9 mmHg (35.0-45.0); ABG PARTIAL PRESSURE O2 78.2 mmHg (75.0-100.0); ABG STANDARD HCO3 21.6 MEQ/L (22.0-26.0); ABG TOTAL CO2 24.5 MEQ/L (22.0-29.0)
[2020-12-13 17:59] LABS: HEMATOCRIT 44.9 % (42.0-52.0); HEMOGLOBIN 14.3 g/dl (13.5-17.5); MEAN CORPUSCULAR HEMOGLOBIN 31.4 pg (27.0-33.0); MEAN CORPUSCULAR HGB CONC 31.8 g/dl (32.0-36.5); MEAN CORPUSCULAR VOLUME 98.5 fl (80.0-96.0); PLATELET COUNT, AUTOMATED 284 10^3/uL (150-450); RED BLOOD COUNT 4.56 10^6/uL (4.30-6.10); WHITE BLOOD COUNT 13.2 10^3/uL (4.0-10.0)
[2020-12-13 18:10] LABS: INR 1.08; PROTHROMBIN TIME 14.4 SECONDS (12.7-14.5)
[2020-12-13 18:11] LABS: PARTIAL THROMBOPLASTIN TIME 35.5 SECONDS (25.9-37.0)
[2020-12-13 18:17] LABS: ALT/SGPT 202 U/L (12-78); BILIRUBIN,TOTAL 0.2 MG/DL (0.2-1.0); BLOOD UREA NITROGEN 22 MG/DL (7-18); CALCIUM LEVEL 7.7 MG/DL (8.5-10.1); CARBON DIOXIDE LEVEL 26 MEQ/L (21-32); CHLORIDE LEVEL 120 MEQ/L (98-107); CREATININE FOR GFR 1.15 MG/DL (0.70-1.30); GLOMERULAR FILTRATION RATE > 60.0 (>56); GLUCOSE, FASTING 158 MG/DL (70-100); MAGNESIUM LEVEL 2.1 MG/DL (1.8-2.4); PHOSPHORUS LEVEL 3.2 MG/DL (2.5-4.9); POTASSIUM SERUM 3.6 MEQ/L (3.5-5.1); SODIUM LEVEL 151 MEQ/L (136-145); TOTAL PROTEIN 6.2 GM/DL (6.4-8.2)
[2020-12-13 18:25] LABS: ABG BASE EXCESS -4.1 (-2.0-2.0); ABG HCO3 22.3 MEQ/L (22.0-26.0); ABG O2 SATURATION 96.1 % (95.0-99.0); ABG PARTIAL PRESSURE CO2 45.7 mmHg (35.0-45.0); ABG PARTIAL PRESSURE O2 81.7 mmHg (75.0-100.0); ABG STANDARD HCO3 21.1 MEQ/L (22.0-26.0); ABG TOTAL CO2 23.7 MEQ/L (22.0-29.0); ABG pH (ARTERIAL) 7.307 UNITS (7.350-7.450)
[2020-12-13 22:24] LABS: HEMATOCRIT 46.5 % (42.0-52.0); HEMOGLOBIN 14.8 g/dl (13.5-17.5); MEAN CORPUSCULAR HEMOGLOBIN 31.8 pg (27.0-33.0); MEAN CORPUSCULAR HGB CONC 31.8 g/dl (32.0-36.5); MEAN CORPUSCULAR VOLUME 99.8 fl (80.0-96.0); PLATELET COUNT, AUTOMATED 290 10^3/uL (150-450); RED BLOOD COUNT 4.66 10^6/uL (4.30-6.10); WHITE BLOOD COUNT 14.6 10^3/uL (4.0-10.0)
[2020-12-13 22:52] LABS: ALT/SGPT 188 U/L (12-78); BILIRUBIN,TOTAL 0.2 MG/DL (0.2-1.0); BLOOD UREA NITROGEN 22 MG/DL (7-18); CALCIUM LEVEL 7.7 MG/DL (8.5-10.1); CARBON DIOXIDE LEVEL 27 MEQ/L (21-32); CHLORIDE LEVEL 118 MEQ/L (98-107); CREATININE FOR GFR 1.33 MG/DL (0.70-1.30); GLOMERULAR FILTRATION RATE > 60.0 (>56); GLUCOSE, FASTING 177 MG/DL (70-100); MAGNESIUM LEVEL 2.2 MG/DL (1.8-2.4); PHOSPHORUS LEVEL 2.3 MG/DL (2.5-4.9); POTASSIUM SERUM 3.3 MEQ/L (3.5-5.1); SODIUM LEVEL 148 MEQ/L (136-145); TOTAL PROTEIN 6.6 GM/DL (6.4-8.2)
[2020-12-14] VITALS (38 sets, daily range): BP systolic 73–187; BP diastolic 50–98
[2020-12-14] MEDS: NOREPINEPHRINE BITARTRATE 8 MG in D5W 492 ML IV SCH (00:10)
[2020-12-14] MEDS: HumaLOG INSULIN (NovoLOG) PER UNIT SC SCH ×4 (00:11→18:56)
[2020-12-14] MEDS: D5W/0.2% SODIUM CHLORIDE 1,000 ML IV SCH (00:12)
[2020-12-14] MEDS ORDERED: POTASSIUM CHLORIDE 10% LIQ 20 MEQ/15 ML UDC PO ONE (02:15)
[2020-12-14 02:37] LABS: HEMATOCRIT 47.3 % (42.0-52.0); HEMOGLOBIN 14.8 g/dl (13.5-17.5); MEAN CORPUSCULAR HEMOGLOBIN 31.2 pg (27.0-33.0); MEAN CORPUSCULAR HGB CONC 31.3 g/dl (32.0-36.5); MEAN CORPUSCULAR VOLUME 99.8 fl (80.0-96.0); PLATELET COUNT, AUTOMATED 291 10^3/uL (150-450); RED BLOOD COUNT 4.74 10^6/uL (4.30-6.10); WHITE BLOOD COUNT 14.1 10^3/uL (4.0-10.0)
[2020-12-14] MEDS: KCL 20MEQ IN D5/0.2%NS 1000ML 1,000 ML IV SCH ×4 (03:01→18:57)
[2020-12-14 03:28] LABS: ALBUMIN 2.9 GM/DL (3.2-5.2); ALT/SGPT 174 U/L (12-78); BILIRUBIN,TOTAL 0.2 MG/DL (0.2-1.0); BLOOD UREA NITROGEN 20 MG/DL (7-18); CALCIUM LEVEL 7.9 MG/DL (8.5-10.1); CARBON DIOXIDE LEVEL 27 MEQ/L (21-32); CHLORIDE LEVEL 120 MEQ/L (98-107); CREATININE FOR GFR 1.27 MG/DL (0.70-1.30); GLOMERULAR FILTRATION RATE > 60.0 (>56); GLUCOSE, FASTING 204 MG/DL (70-100); PHOSPHORUS LEVEL 1.7 MG/DL (2.5-4.9); POTASSIUM SERUM 3.5 MEQ/L (3.5-5.1); SODIUM LEVEL 151 MEQ/L (136-145); TOTAL PROTEIN 6.7 GM/DL (6.4-8.2)
[2020-12-14] MEDS: IPRATROPIUM 0.5MG/ALBUTEROL 2.5MG INH SOL UD 3ML (DUONEB) NEB SCH ×4 (03:56→15:07)
[2020-12-14 05:46] LABS: ABG BASE EXCESS -5.1 (-2.0-2.0); ABG HCO3 20.7 MEQ/L (22.0-26.0); ABG O2 SATURATION 97.6 % (95.0-99.0); ABG PARTIAL PRESSURE CO2 41.1 mmHg (35.0-45.0); ABG PARTIAL PRESSURE O2 99.3 mmHg (75.0-100.0); ABG STANDARD HCO3 20.3 MEQ/L (22.0-26.0); ABG TOTAL CO2 21.9 MEQ/L (22.0-29.0); ABG pH (ARTERIAL) 7.319 UNITS (7.350-7.450)
[2020-12-14] MEDS: HEPARIN SOD (PORCINE) 5000UNITS/ML 1ML VIAL/SYRINGE SC SCH ×2 (06:01→13:46)
[2020-12-14 06:25] LABS: BASO % 0.3 % (0.0-1.0); EOS # 0.1 10^3/uL (0.0-0.5); HEMOGLOBIN 14.4 g/dl (13.5-17.5); LYMPH # 0.8 10^3/uL (1.5-5.0); LYMPH % 6.1 % (24.0-44.0); MEAN CORPUSCULAR HEMOGLOBIN 31.5 pg (27.0-33.0); MEAN CORPUSCULAR HGB CONC 31.3 g/dl (32.0-36.5); MEAN CORPUSCULAR VOLUME 100.7 fl (80.0-96.0); MONO # 0.9 10^3/uL (0.0-0.8); NEUTROPHILS # 10.6 10^3/uL (1.5-8.5); NEUTROPHILS % 85.2 % (36.0-66.0); PLATELET COUNT, AUTOMATED 258 10^3/uL (150-450); RED BLOOD COUNT 4.57 10^6/uL (4.30-6.10); WHITE BLOOD COUNT 12.5 10^3/uL (4.0-10.0)
[2020-12-14 07:00] LABS: ALBUMIN 2.6 GM/DL (3.2-5.2); ALT/SGPT 157 U/L (12-78); BILIRUBIN,TOTAL 0.2 MG/DL (0.2-1.0); BLOOD UREA NITROGEN 17 MG/DL (7-18); CALCIUM LEVEL 8.3 MG/DL (8.5-10.1); CARBON DIOXIDE LEVEL 24 MEQ/L (21-32); CHLORIDE LEVEL 123 MEQ/L (98-107); CREATININE FOR GFR 1.18 MG/DL (0.70-1.30); GLOMERULAR FILTRATION RATE > 60.0 (>56); GLUCOSE, FASTING 206 MG/DL (70-100); MAGNESIUM LEVEL 2.1 MG/DL (1.8-2.4); PHOSPHORUS LEVEL 1.5 MG/DL (2.5-4.9); POTASSIUM SERUM 3.9 MEQ/L (3.5-5.1); SODIUM LEVEL 152 MEQ/L (136-145); TOTAL PROTEIN 6.2 GM/DL (6.4-8.2)
--- NOTE | 2020-12-14 08:01 | REP ---
INDICATION: Resp failure COMPARISON: 12/13/2020 TECHNIQUE: Portable AP view of the chest FINDINGS: Endotracheal tube in satisfactory position. Nasogastric tube extends below the left hemidiaphragm. The mediastinum and cardiac silhouette are stable and within normal limits for portable technique. The lung sanon are clear without acute consolidation, effusion, or pneumothorax. Skeletal structures are intact. IMPRESSION: No focal consolidation or effusion. <Electronically signed by Joe Chu > 12/14/20 0750
[2020-12-14] MEDS: METOPROLOL TART 50 MG TAB PO SCH (08:22)
--- NOTE | 2020-12-14 09:39 | REPVR ---
PROCEDURE INFORMATION: Exam: CT Head Without Contrast Exam date and time: 12/14/2020 8:46 AM Age: 50 years old Clinical indication: Other: Anoxic encephalopathy TECHNIQUE: Imaging protocol: Computed tomography of the head without contrast. Radiation optimization: All CT scans at this facility use at least one of these dose optimization techniques: automated exposure control; mA and/or kV adjustment per patient size (includes targeted exams where dose is matched to clinical indication); or iterative reconstruction. COMPARISON: CT Head without contrast 12/12/2020 5:22 PM FINDINGS: Brain: Diffuse hypodensity and edema, consistent with the the reported history of anoxic encephalopathy, with effacement of the cortical sulci, ventricles, and basilar cisterns. Calcified 1.4 cm meningioma in the right frontal region. Cerebral ventricles: Diminished caliber of the ventricles. Paranasal sinuses: Mucoperiosteal disease and fluid in the visualized sinuses, of greatest severity involving the left maxillary sinus. Mastoid air cells: No mastoid effusion. Bones/joints: No acute calvarial pathology. Soft tissues: Unremarkable soft tissues. When correlating with the previous study, no significant interval changes are present. IMPRESSION: Diffuse hypodensity and edema, consistent with the the reported history of anoxic encephalopathy, with effacement of the cortical sulci, ventricles, and basilar cisterns. Electronically signed by: Musa Gregory On 12/14/2020 09:39:20 AM
--- NOTE | 2020-12-14 09:40 | CCN ---
CRITICAL CARE NOTE DATE: 12/14/2020 SUBJECTIVE: I again attended Damon Simmons here in the Intensive Care Unit. Patient has been examined. Chart reviewed. He has required no sedation. He remains complete unresponsive to all painful stimuli. Pupils are fixed and dilated. No corneal reflexes. No cough or gag. T-max overnight 99. Blood pressure 100, intermittently to the 180s. Heart rate currently 110 with a sinus mechanism. Respiratory rate 22 via the ventilator. Ins and outs midnight to midnight 5,690 mL in with 6,335 mL out. Since midnight, 1,720 mL in with 3,190 mL out. Most recent laboratories showed a white blood cell count down to 12.5, hemoglobin 14.4, platelet count 258,000, 85% segs, no bands. Sodium 152, potassium 3.9, chloride 123, bicarb 24, BUN 17, creatinine down to 1.18, glucose 206. Phosphorus mildly low at 1.5 and is being repleted. AST and ALT 96 and 157. Albumin 2.6. Blood gas done on a PRVC, rate of 22, tidal volume 450, PEEP of 5, FiO2 of 40% has a pH of 7.319, pCO2 41.1, and a pO2 of 99.3. Blood cultures negative to date. Chest x-ray done this morning shows lines and tubes in good position. No obvious infiltrates. OBJECTIVE: GENERAL: He remains completely unresponsive. Lab work as outlined above. HEENT: Pupils fixed and dilated. Membranes are moist. Trachea is in the midline. LUNGS: Clear to auscultation and percussion. Symmetric. No significant focal adventitious breath sounds identified. CARDIAC: Minimal tachycardic but regular. Peripheral pulses palpable. No edema. ABDOMEN: Soft. Hypoactive bowel sounds. No convincing organomegaly or masses. EXTREMITIES: No cyanosis or clubbing. NEUROLOGIC: As outlined above. MOST PRESSING PROBLEMS REQUIRING MY PRESENCE AT THE BEDSIDE: 1. Anoxic encephalopathy. Suspect he will meet brain criteria. 2. Status post respiratory/cardiac arrest. 3. History of opiate use. 4. Hypernatremia. 5. Atrial fibrillation. PLAN: At this point, we have completed the rewarming portion of his hypothermia protocol. I will repeat a CT scan of his head today. I have spoken with Neurology, and we will likely proceed with the brain exams. I had spoken with his brother and about this yesterday. Whatever confirmation studies Neurology desires will be ordered. As part of the brain evaluation, we will be doing the apnea exam at the appropriate time. In the interim, we will continue his current level of supportive care. We will replete his electrolytes appropriately. I am concerned given his increasing urinary output and his hypernatremia that he is beginning to develop at least a low dose of diabetes insipidus. For this reason, DDAVP was ordered and will start with it intranasally. We will recheck his lab work later today. At this point, we will proceed as outlined above. I left the bedside at 0907 hours. Forty-seven minutes of critical care time at the bedside not including procedures.
[2020-12-14] MEDS: CHLORHEXIDINE GLUCONATE 0.12 % 15ML UDC (PERIDEX ORAL RINSE) MT SCH (09:49)
[2020-12-14] MEDS: DESMOPRESSIN 0.01% NASAL SOLN 5 ML BTL SCH ×2 (09:49→16:10)
[2020-12-14] MEDS: PANTOPRAZOLE 40MG VIAL (C9113 PER 1) IV SCH (09:49)
[2020-12-14] MEDS: LACRILUBE (AKWA TEARS) OPHTH OINT 3.5 GM OU SCH ×2 (09:50→16:10)
[2020-12-14 10:59] LABS: ABG BASE EXCESS -3.6 (-2.0-2.0); ABG HCO3 21.7 MEQ/L (22.0-26.0); ABG O2 SATURATION 99.7 % (95.0-99.0); ABG PARTIAL PRESSURE CO2 40.4 mmHg (35.0-45.0); ABG PARTIAL PRESSURE O2 430.3 mmHg (75.0-100.0); ABG STANDARD HCO3 21.5 MEQ/L (22.0-26.0); ABG TOTAL CO2 22.9 MEQ/L (22.0-29.0); ABG pH (ARTERIAL) 7.348 UNITS (7.350-7.450)
[2020-12-14] MEDS ORDERED: POTASSIUM PHOSPHATE INJ 30 MMOL in D5W 500 ML IV ONE (11:00)
[2020-12-14 11:15] LABS: ABG BASE EXCESS -6.3 (-2.0-2.0); ABG HCO3 24.7 MEQ/L (22.0-26.0); ABG O2 SATURATION 99.7 % (95.0-99.0); ABG PARTIAL PRESSURE O2 468.9 mmHg (75.0-100.0); ABG STANDARD HCO3 19.4 MEQ/L (22.0-26.0)
[2020-12-14 11:21] LABS: ABG PARTIAL PRESSURE CO2 75.9 mmHg (35.0-45.0)
--- NOTE | 2020-12-14 12:39 | CCN ---
CRITICAL CARE NOTE DATE: 12/14/2020 START TIME: 10:15 STOP TIME: 11:17 SUBJECTIVE: I again attended Damon Simmons. We have been doing brain criteria testing. We await his blood gas for the apnea test. He has met all other criteria. I had very lengthy phone conversations both with his as well as with his brother Jah. They initially were wondering why we are sending his DNR status. I discussed with them again the criteria for brain and what that actually means. Unfortunately they are still emotionally struggling with this as would be expected. We do await the finalization of his blood gas for brain criteria. I have spoken with Dr. Giron from Neurology who will perform the second part of this later this afternoon. As soon as I get the results of the blood gas we will make the final determination. His pre-apnea testing blood gas has a pH of 7.348, pCO2 of 40.4 and a PaO2 430.3. To meet criteria, he will need to either have a pCO2 greater than 60 based on absolutes and increase greater than 20 would also give us the same number. Certainly if that portion of the study needs to be repeated, we can certainly do that if need be. Apnea time was ten minutes without any evidence of respiratory muscle effort. There was no significant change in heart rate and there was no significant ectopy.
--- NOTE | 2020-12-14 12:39 | CCN ---
CRITICAL CARE NOTE DATE: 12/14/2020 CONTINUATION OF CRITICAL CARE I now have the results of his apnea test back. pH fell to 7.130, and his pCO2 ventura to 75.9, PaO2 of 468.9. This clearly meets criteria for a failed apnea test. There was no respiratory effort whatsoever. At this point, he has met all criteria for brain . As eluded to in my previous note above, I had spoken with the and his eldest brother. The initial exam confirmed at 11:21 hours on this date, December 14, 2020. We await the second examiner. [facility] is awaiting to talk to the family as well.
[2020-12-14 14:07] LABS: HEMATOCRIT 44.1 % (42.0-52.0); HEMOGLOBIN 13.7 g/dl (13.5-17.5); MEAN CORPUSCULAR HEMOGLOBIN 31.6 pg (27.0-33.0); MEAN CORPUSCULAR HGB CONC 31.1 g/dl (32.0-36.5); MEAN CORPUSCULAR VOLUME 101.8 fl (80.0-96.0); PLATELET COUNT, AUTOMATED 232 10^3/uL (150-450); RED BLOOD COUNT 4.33 10^6/uL (4.30-6.10); WHITE BLOOD COUNT 13.2 10^3/uL (4.0-10.0)
--- NOTE | 2020-12-14 14:30 | ECHO ---
ECHOCARDIOGRAM DATE OF PROCEDURE: 12/12/2020 Age: 50 REFERRING PROVIDER: Dr. Leticia Luevano. PATIENT LOCATION: Room 3207. REASON FOR THE ECHOCARDIOGRAM: Studies post cardiac arrest. 2D MEASUREMENTS: IVS 1.2 cm LV 5.1 cm LVPW 1.3 cm Aortic root 3.2 cm LA 3.5 cm IVC 1.9 cm DOPPLER MEASUREMENT Peak velocity across the aortic valve 0.97 m/s Mitral E 0.5 Mitral A 0.4 with a ratio of 1.28 Maximum tricuspid valve velocity 2.0 m/s 2D COMMENTS: 1. Technically very limited study due to poor acoustic window, on the subcostal views. 2. The left ventricular size appeared to be normal as well as left ventricular systolic function. The estimated LVEF is 50 to 55%. 3. Normal left atrium. Normal right atrium and right ventricle noted in limited views. 4. The atrial septum did not reveal any evidence of defect or shunt. 5. Normal aortic root. 6. Possible trace pericardial effusion noted in limited views. 7. Mildly calcified aortic valve with normal leaflet excursion. Normal mitral valve and tricuspid valve. The pulmonic valve and proximal pulmonary artery branches were not well visualized. 8. The inferior vena cava appeared to be normal in size, central venous pressure is most likely normal. DOPPLER: Only trace tricuspid regurgitation detected. The calculated pulmonary artery systolic pressure appeared to be normal. Assessment of the left ventricular diastolic function appeared to be normal but was limited. IMPRESSION: 1. Normal global left ventricular systolic function. Assessment of the left ventricular diastolic function also appeared to be normal. 2. Aortic valve sclerosis without stenosis or aortic regurgitation. 3. Trace tricuspid regurgitation with a normal calculated pulmonary artery systolic pressure. 4. This study was technically very limited due to poor acoustic window. [facility]
[2020-12-14 14:39] LABS: ALBUMIN 2.5 GM/DL (3.2-5.2); ALT/SGPT 133 U/L (12-78); BILIRUBIN,TOTAL 0.3 MG/DL (0.2-1.0); BLOOD UREA NITROGEN 15 MG/DL (7-18); CALCIUM LEVEL 8.3 MG/DL (8.5-10.1); CARBON DIOXIDE LEVEL 27 MEQ/L (21-32); CHLORIDE LEVEL 124 MEQ/L (98-107); CHOLESTEROL LEVEL 102 MG/DL (< 200); CPK CREATINE PHOSPHOKINASE 384 U/L (39-308); CREATININE FOR GFR 1.09 MG/DL (0.70-1.30); GLOMERULAR FILTRATION RATE > 60.0 (>56); GLUCOSE, FASTING 168 MG/DL (70-100); LDH LACTATE DEHYDROGENASE 328 U/L (87-241); PHOSPHORUS LEVEL 2.2 MG/DL (2.5-4.9); POTASSIUM SERUM 3.8 MEQ/L (3.5-5.1); SODIUM LEVEL 152 MEQ/L (136-145); TOTAL PROTEIN 6.1 GM/DL (6.4-8.2); TRIGLYCERIDES LEVEL 68 MG/DL (<150)
--- NOTE | 2020-12-14 19:13 | CR ---
CONSULTATION DATE: 12/14/2020 REFERRING PHYSICIAN: Stiven Luevano M.D. REASON FOR CONSULTATION: Hypoxic ischemic encephalopathy after cardiac arrest. HISTORY OF PRESENT ILLNESS: The patient is a 50-year-old man with a history of chronic pain syndrome, narcotic abuse, was found down by family at home. He was down for unknown period of time. He was last known two hours before he was found. There had been discussion in the family about rehabilitation from narcotic abuse. According to nurses, patient told family that he was going to manage it on his own. After he was found down, family started cardiopulmonary resuscitation. There was about 20 minutes of transportation time. He was intubated in emergency department. He did not require sedation for intubation. Upon arrival, his pupils were fixed and dilated. He had return of spontaneous circulation. He was initially hypotensive in the emergency department and was given intravenous fluid and Levophed. CT scan of head at arrival showed diffuse cerebral edema. CT scan of chest showed basilar atelectasis. The patient was on cooling blanket which was taken off the next day. The patient has remained unresponsive without sedation. He has no gag reflex, no light corneal pupillary reflexes. He had no response from cold caloric testing. His apnea test is positive. No history could be obtained from patient at this time. Most of the information was obtained from nurses, electronic medical records and discussion with Dr. Luevano. PAST MEDICAL HISTORY: 1. Chronic pain syndrome. 2. History of vascular disease. HOME MEDICATIONS: 1. Eliquis. 2. Ativan. 3. Hydrocodone. SOCIAL HISTORY: Could not be obtained. FAMILY HISTORY: Could not be obtained. REVIEW OF SYSTEMS: Could not be obtained. PHYSICAL EXAMINATION: VITAL SIGNS: Heart rate 140, respiratory rate 14 on mechanical ventilation intubation. HEART: Regular. LUNGS: Clear to auscultation. ABDOMEN: Soft, nontender, nondistended. EXTREMITIES: No pedal edema. MUSCULOSKELETAL: No abnormalities. SKIN: No rash. NEUROLOGICAL: No signs of meningeal irritation. The patient is intubated on ventilator without sedation. He remains completely unresponsiveness. No response to verbal, physical or painful stimuli. Pupils are 8 mm, fixed bilaterally. There are no light corneal reflexes. He has no gag reflex. Plantars are mute. Sensory, cerebellar, gait testing could not be performed. His apnea test was positive earlier and is documented in electronic medical records. DIAGNOSTIC STUDIES: CT scan of his head was reviewed and showed severe, diffuse cerebral edema with loss of chambers-white matter differentiation and sulci. Sodium was 141, potassium 5.2. WBC is 9.2, hemoglobin 11.8, platelet count 264. Urine toxicology screen was positive for opiates. ASSESSMENT: 1. Severe hypoxic ischemic encephalopathy. 2. Concern for opiate ingestion resulting in cardiopulmonary arrest. PLAN: 1. Patient already meets criteria for brain . His prognosis is extremely poor/guarded. 2. Family to make decision about withdrawal of care.
--- NOTE | 2020-12-15 10:40 | DSES ---
DISCHARGE SUMMARY DATE OF ADMISSION: 12/12/2020 DATE OF DISCHARGE/: 12/14/2020 at 1121 hours. CONDITION ON DISCHARGE: . Family doing organ donation. DISCHARGE DIAGNOSES: 1. Anoxic encephalopathy. 2. Cardiopulmonary arrest. 3. Atrial fibrillation. 4. Metabolic acidosis. 5. Hyperphosphatemia. HISTORY: Mr. Simmons is a 50-year-old gentleman with known atrial fibrillation. Family gives a history of issues with pain medication use. He had about a two hour period where he was not seen by family and was found down. Family started CPR. Return of spontaneous circulation. Arrived in the ER with pupils fixed and dilated and unresponsive to painful stimuli. Physical exam at the time of admission showed him to have his pupils fixed and dilated. He did have a mild cough and gag but was unresponsive to all painful stimuli. At presentation, he was in atrial fibrillation. He initially had significant hypotension and then hypertension. Atrial fibrillation was converted with Lopressor and metoprolol. He was admitted to the Intensive Care Unit. HOSPITAL COURSE: After arrival to the ICU, appropriate ventilator changes were made. He underwent hypothermia protocol. His atrial fibrillation converted to sinus rhythm. He did not require vasopressors again. Chest x-ray showed no evidence of infiltrate, and, therefore, antibiotics were not started. Within several hours, he had loss of cough and gag. Once his hypothermia protocol was completed, repeat CT scan of the head showed even more progression of his diffuse edema with complete loss of oh-white interface. Brain criteria were performed. He met brain criteria at 1121 hours on 12/14/2020. Confirmatory exam by Dr. Giron of Neurology was also performed. Family was informed of this. He was, therefore, declared at 1121 hours. Family wished organ donation, and care was then turned over to [facility]. For further laboratories, please refer to hospital record.
== END 2020-12-14 11:21 | disposition expired | DRG 812 ==
LOC: M ED 15:33 → EDBD 15:33 → M ED INP 19:21 → ENRESERV 20:44 → M ICU 20:57 → UNDODISIN 12-14 11:21
PROVIDERS: ADMIT Internal Medicine Pulmonary Disease; ATTEND Internal Medicine Pulmonary Disease
PROC: 5A1945Z Respiratory Ventilation, 24-96 Consecutive Hours (ICD-10-PCS; principal; 2020-12-12)
PROC: 0BH17EZ Insertion of Endotracheal Airway into Trachea, Via Natural or Artificial Opening (ICD-10-PCS; 2020-12-12)
DX: T40.604A Poisoning by unspecified narcotics, undetermined, initial encounter (principal); I46.9 Cardiac arrest, cause unspecified; G93.6 Cerebral edema; G93.1 Anoxic brain damage, not elsewhere classified; E87.2 Acidosis; E83.39 Other disorders of phosphorus metabolism; I48.91 Unspecified atrial fibrillation; F11.20 Opioid dependence, uncomplicated; G89.4 Chronic pain syndrome; Z66 Do not resuscitate; Z79.01 Long term (current) use of anticoagulants; Z79.891 Long term (current) use of opiate analgesic; Z79.899 Other long term (current) drug therapy

== ENCOUNTER 2020-12-14 18:59 | Outpatient (REF) | payer SELFPAY ==
[2020-12-14] VITALS (19 sets, daily range): BP systolic 68–147; BP diastolic 45–88
[~2020-12-14 18:59] MED LIST changes: +LORA2TAB14 PO; +METO50TA7 PO; +med rec comment
[2020-12-14] MEDS ORDERED: KCL 20MEQ IN D5/0.2%NS 1000ML 1,000 ML IV SCH (19:25)
[2020-12-14] MEDS ORDERED: NOREPINEPHRINE BITARTRATE 8 MG in D5W 492 ML IV SCH (19:25)
--- NOTE | 2020-12-14 19:59 | REP ---
INDICATION: organ donor. COMPARISON: Comparison chest x-ray December 14, 2020. TECHNIQUE: Portable semi-erect AP chest radiograph. FINDINGS: Endotracheal tube is seen in good position just above the transverse enters the gastric fundus region. The lungs are symmetrically aerated and clear. The pleural angles are sharp. Heart is not enlarged. The aorta is slightly tortuous. Pulmonary vasculature is not increased. No acute bony abnormality is seen. Aorta. NG tube IMPRESSION: Endotracheal and nasogastric tubes in place. Otherwise no acute disease. <Electronically signed by Ronaldo Merrill > 12/14/201955
[2020-12-14] MEDS: NS 0.45% 1,000 ML IV SCH (20:00)
[2020-12-14 20:04] LABS: ABG BASE EXCESS -5.5 (-2.0-2.0); ABG HCO3 19.7 MEQ/L (22.0-26.0); ABG O2 SATURATION 96.3 % (95.0-99.0); ABG PARTIAL PRESSURE CO2 37.6 mmHg (35.0-45.0); ABG PARTIAL PRESSURE O2 78.9 mmHg (75.0-100.0); ABG STANDARD HCO3 19.9 MEQ/L (22.0-26.0); ABG TOTAL CO2 20.8 MEQ/L (22.0-29.0); ABG pH (ARTERIAL) 7.337 UNITS (7.350-7.450)
[2020-12-14 20:45] LABS: BASO # 0.1 10^3/uL (0.0-0.2); BASO % 0.5 % (0.0-1.0); EOS # 0.6 10^3/uL (0.0-0.5); EOS % 4.1 % (0.0-3.0); HEMATOCRIT 42.2 % (42.0-52.0); HEMOGLOBIN 13.2 g/dl (13.5-17.5); LYMPH # 1.5 10^3/uL (1.5-5.0); MEAN CORPUSCULAR HEMOGLOBIN 31.7 pg (27.0-33.0); MEAN CORPUSCULAR HGB CONC 31.3 g/dl (32.0-36.5); MEAN CORPUSCULAR VOLUME 101.4 fl (80.0-96.0); MONO # 0.9 10^3/uL (0.0-0.8); MONO % 6.5 % (2.0-8.0); NEUTROPHILS # 11.3 10^3/uL (1.5-8.5); NEUTROPHILS % 78.3 % (36.0-66.0); PLATELET COUNT, AUTOMATED 214 10^3/uL (150-450); RED BLOOD COUNT 4.16 10^6/uL (4.30-6.10); WHITE BLOOD COUNT 14.5 10^3/uL (4.0-10.0)
[2020-12-14 20:58] LABS: INR 1.22; PROTHROMBIN TIME 15.9 SECONDS (12.7-14.5)
[2020-12-14 20:59] LABS: PARTIAL THROMBOPLASTIN TIME 42.1 SECONDS (25.9-37.0)
[2020-12-14] MEDS: NOREPINEPHRINE BITARTRATE 8 MG in D5W 492 ML IV SCH (21:03)
[2020-12-14 21:16] LABS: OSMOLALITY SERUM 315 MOSM/KG (275-295)
[2020-12-14 21:17] LABS: ALBUMIN 2.5 GM/DL (3.2-5.2); ALT/SGPT 121 U/L (12-78); AMYLASE 291 U/L (25-115); BILIRUBIN,DIRECT 0.1 MG/DL (0.0-0.2); BILIRUBIN,TOTAL 0.4 MG/DL (0.2-1.0); BLOOD UREA NITROGEN 15 MG/DL (7-18); CALCIUM LEVEL 7.9 MG/DL (8.5-10.1); CARBON DIOXIDE LEVEL 26 MEQ/L (21-32); CHLORIDE LEVEL 123 MEQ/L (98-107); CREATININE FOR GFR 1.08 MG/DL (0.70-1.30); GLOMERULAR FILTRATION RATE > 60.0 (>56); GLUCOSE, FASTING 126 MG/DL (70-100); LDH LACTATE DEHYDROGENASE 363 U/L (87-241); LIPASE 41 U/L (73-393); PHOSPHORUS LEVEL 2.4 MG/DL (2.5-4.9); POTASSIUM SERUM 3.9 MEQ/L (3.5-5.1); SODIUM LEVEL 153 MEQ/L (136-145); TOTAL PROTEIN 5.3 GM/DL (6.4-8.2); TRIGLYCERIDES LEVEL 55 MG/DL (<150)
[2020-12-14 21:33] LABS: AMORPHOUS SEDIMENT SMALL (NEGATIVE); BACTERIA, URINE AUTO 1+ (NEGATIVE); GRANULAR CAST, URINE AUTO 13 /LPF; MUCUS, URINE SMALL (NEGATIVE); RBC, URINE AUTO 4 /HPF (0-3); SQUAMOUS EPITHELIAL CELL UR AU 1 /HPF (0-6); TRANSITIONAL EPITHELIAL AUTO 2 /HPF; WBC, URINE AUTO 30 /HPF (0-3)
[2020-12-14 21:34] LABS: APPEARANCE, URINE CLOUDY (CLEAR); BILIRUBIN, URINE AUTO NEGATIVE (NEGATIVE); BLOOD, URINE BLOOD 1+ (NEGATIVE); COLOR, URINE YELLOW (YELLOW); GLUCOSE, URINE (UA) AUTO NEGATIVE (NEGATIVE); KETONE, URINE AUTO NEGATIVE (NEGATIVE); LEUKOCYTE ESTERASE, URINE AUTO NEGATIVE (NEGATIVE); NITRITE, URINE AUTO NEGATIVE (NEGATIVE); PROTEIN, URINE AUTO 1+ mg/dL (NEGATIVE); SPECIFIC GRAVITY URINE AUTO 1.018 (1.002-1.035); UROBILINOGEN, URINE AUTO 0.2 mg/dL (0.0-2.0)
[2020-12-14] MEDS: PIPERACILLIN/TAZOBACTAM SOD 3.375 GM in D5W MINI-BAG PLUS 50 ML IV SCH (23:04)
[2020-12-15] VITALS (81 sets, daily range): BP systolic 86–148; BP diastolic 45–93
[2020-12-15] MEDS ORDERED: NS 0.45% 1,000 ML IV ONE
[2020-12-15 00:20] LABS: BASO # 0.1 10^3/uL (0.0-0.2); BASO % 0.5 % (0.0-1.0); EOS # 0.8 10^3/uL (0.0-0.5); EOS % 5.1 % (0.0-3.0); HEMATOCRIT 42.1 % (42.0-52.0); HEMOGLOBIN 13.2 g/dl (13.5-17.5); LYMPH # 1.9 10^3/uL (1.5-5.0); LYMPH % 11.4 % (24.0-44.0); MEAN CORPUSCULAR HEMOGLOBIN 31.6 pg (27.0-33.0); MEAN CORPUSCULAR HGB CONC 31.4 g/dl (32.0-36.5); MEAN CORPUSCULAR VOLUME 100.7 fl (80.0-96.0); MONO # 1.1 10^3/uL (0.0-0.8); MONO % 6.6 % (2.0-8.0); NEUTROPHILS # 12.6 10^3/uL (1.5-8.5); NEUTROPHILS % 75.9 % (36.0-66.0); PLATELET COUNT, AUTOMATED 232 10^3/uL (150-450); RED BLOOD COUNT 4.18 10^6/uL (4.30-6.10); WHITE BLOOD COUNT 16.6 10^3/uL (4.0-10.0)
[2020-12-15] MEDS ORDERED: D5W IV ONE (00:30)
[2020-12-15] MEDS ORDERED: LEVOTHYROXINE SODIUM IV ONE (00:30)
[2020-12-15 00:31] LABS: INR 1.21; PROTHROMBIN TIME 15.7 SECONDS (12.7-14.5)
[2020-12-15 00:32] LABS: PARTIAL THROMBOPLASTIN TIME 44.3 SECONDS (25.9-37.0)
[2020-12-15 00:43] LABS: ABG BASE EXCESS -3.8 (-2.0-2.0); ABG HCO3 21.8 MEQ/L (22.0-26.0); ABG O2 SATURATION 99.8 % (95.0-99.0); ABG PARTIAL PRESSURE CO2 41.7 mmHg (35.0-45.0); ABG PARTIAL PRESSURE O2 479.2 mmHg (75.0-100.0); ABG STANDARD HCO3 21.4 MEQ/L (22.0-26.0); ABG TOTAL CO2 23.1 MEQ/L (22.0-29.0); ABG pH (ARTERIAL) 7.337 UNITS (7.350-7.450)
[2020-12-15 00:46] LABS: ALBUMIN 2.4 GM/DL (3.2-5.2); ALT/SGPT 115 U/L (12-78); BILIRUBIN,DIRECT 0.2 MG/DL (0.0-0.2); BILIRUBIN,TOTAL 0.5 MG/DL (0.2-1.0); BLOOD UREA NITROGEN 15 MG/DL (7-18); CALCIUM LEVEL 7.9 MG/DL (8.5-10.1); CARBON DIOXIDE LEVEL 26 MEQ/L (21-32); CHLORIDE LEVEL 122 MEQ/L (98-107); GLOMERULAR FILTRATION RATE > 60.0 (>56); GLUCOSE, FASTING 143 MG/DL (70-100); POTASSIUM SERUM 3.9 MEQ/L (3.5-5.1); SODIUM LEVEL 152 MEQ/L (136-145); TOTAL PROTEIN 5.3 GM/DL (6.4-8.2)
[2020-12-15] MEDS ORDERED: HumuLIN R (REGULAR) INSULIN (NovoLIN R) **100U/ML** PER UNIT IV STA (01:44)
[2020-12-15] MEDS ORDERED: DEXTROSE 50% 50 ML SYRINGE IV STA (01:44)
[2020-12-15] MEDS ORDERED: methylPREDNISolone 125MG 2ML VIAL IV ONE (01:45)
[2020-12-15] MEDS: LEVOTHYROXINE SODIUM IV SCH ×3 (02:01→20:16)
[2020-12-15] MEDS: D5W IV SCH ×3 (02:01→20:16)
[2020-12-15 03:03] LABS: ABG BASE EXCESS -6.6 (-2.0-2.0); ABG HCO3 19.2 MEQ/L (22.0-26.0); ABG O2 SATURATION 98.3 % (95.0-99.0); ABG PARTIAL PRESSURE CO2 39.4 mmHg (35.0-45.0); ABG PARTIAL PRESSURE O2 117.2 mmHg (75.0-100.0); ABG STANDARD HCO3 19.1 MEQ/L (22.0-26.0); ABG TOTAL CO2 20.4 MEQ/L (22.0-29.0); ABG pH (ARTERIAL) 7.305 UNITS (7.350-7.450)
[2020-12-15] MEDS: ALBUTEROL SULFATE 2.5 MG/0.5 ML INH NEB SOLN NEB SCH ×5 (04:04→20:04)
--- NOTE | 2020-12-15 04:13 | REPVR ---
PROCEDURE INFORMATION: Exam: XR Chest Exam date and time: 12/15/20 (2:11am) Age: 50 years old Clinical indication: Screening examination. Organ and tissue recovery. Numeric numbering on film is in "cm" placed on film during exposure. Please include these measurements if possible : length of left and right lungs, aortic knob width, diaphragm width, and costophrenic angle width overall. TECHNIQUE: Imaging protocol: Portable CXR Views: 1 view COMPARISON: Portable CXR of 12/14/20 (7:29pm) FINDINGS: Lungs: Unremarkable. No consolidation. Pleural spaces: Unremarkable. No pleural effusions. No pneumothorax. Heart/Mediastinum: Unremarkable. No cardiomegaly. Bones/joints: Unremarkable. Diffuse degenerative thoracic spine changes Other findings: E-T tube in place, terminating 5.0 cm above the yen. Enteric tube is seen, with its tip in the fundal region of the stomach. IMPRESSION: No acute findings. Measurements are as follows: Length of left lung --- 26.9 cm Length of right lung --- 26.2 cm Width of aortic knob --- 3.7 cm Diaphragm width (both combined) --- 33.2 cm CP angle width overall ---- (unsure how to measure) Electronically signed by: Cyndie Carrasquillo On 12/15/2020 04:13:21 AM
[2020-12-15] MEDS: NS 0.45% 1,000 ML IV SCH ×3 (04:18→19:58)
[2020-12-15] MEDS: PIPERACILLIN/TAZOBACTAM SOD 3.375 GM in D5W MINI-BAG PLUS 50 ML IV SCH ×4 (04:59→23:03)
[2020-12-15 06:09] LABS: ABG BASE EXCESS -2.9 (-2.0-2.0); ABG HCO3 21.4 MEQ/L (22.0-26.0); ABG O2 SATURATION 97.5 % (95.0-99.0); ABG PARTIAL PRESSURE CO2 35.8 mmHg (35.0-45.0); ABG STANDARD HCO3 22.1 MEQ/L (22.0-26.0); ABG TOTAL CO2 22.5 MEQ/L (22.0-29.0); ABG pH (ARTERIAL) 7.394 UNITS (7.350-7.450)
[2020-12-15 06:18] LABS: HEMATOCRIT 40.4 % (42.0-52.0); HEMOGLOBIN 12.8 g/dl (13.5-17.5); MEAN CORPUSCULAR HEMOGLOBIN 31.8 pg (27.0-33.0); MEAN CORPUSCULAR HGB CONC 31.7 g/dl (32.0-36.5); MEAN CORPUSCULAR VOLUME 100.2 fl (80.0-96.0); PLATELET COUNT, AUTOMATED 192 10^3/uL (150-450); RED BLOOD COUNT 4.03 10^6/uL (4.30-6.10); WHITE BLOOD COUNT 12.4 10^3/uL (4.0-10.0)
[2020-12-15 06:32] LABS: INR 1.16; PROTHROMBIN TIME 15.3 SECONDS (12.7-14.5)
[2020-12-15 06:33] LABS: PARTIAL THROMBOPLASTIN TIME 44.4 SECONDS (25.9-37.0)
[2020-12-15 06:47] LABS: ALBUMIN 2.4 GM/DL (3.2-5.2); ALT/SGPT 107 U/L (12-78); BILIRUBIN,DIRECT 0.2 MG/DL (0.0-0.2); BILIRUBIN,TOTAL 0.5 MG/DL (0.2-1.0); BLOOD UREA NITROGEN 15 MG/DL (7-18); CALCIUM LEVEL 7.8 MG/DL (8.5-10.1); CARBON DIOXIDE LEVEL 24 MEQ/L (21-32); CHLORIDE LEVEL 119 MEQ/L (98-107); CREATININE FOR GFR 1.12 MG/DL (0.70-1.30); GLOMERULAR FILTRATION RATE > 60.0 (>56); GLUCOSE, FASTING 165 MG/DL (70-100); POTASSIUM SERUM 3.7 MEQ/L (3.5-5.1); SODIUM LEVEL 149 MEQ/L (136-145); TOTAL PROTEIN 5.4 GM/DL (6.4-8.2)
[2020-12-15 07:25] LABS: BASOPHILS 1 % (0-1); LYMPHOCYTES 8 % (16-44); MONOCYTES 2 % (0-5); NEUTROPHILS 88 % (28-66); PLATELET ESTIMATE NORMAL (NORMAL)
[2020-12-15 08:17] LABS: ABG BASE EXCESS -3.4 (-2.0-2.0); ABG HCO3 22.6 MEQ/L (22.0-26.0); ABG O2 SATURATION 99.4 % (95.0-99.0); ABG PARTIAL PRESSURE CO2 44.3 mmHg (35.0-45.0); ABG PARTIAL PRESSURE O2 413.6 mmHg (75.0-100.0); ABG STANDARD HCO3 21.7 MEQ/L (22.0-26.0); ABG pH (ARTERIAL) 7.326 UNITS (7.350-7.450)
[2020-12-15 09:04] LABS: ABG BASE EXCESS -4.7 (-2.0-2.0); ABG O2 SATURATION 96.3 % (95.0-99.0); ABG PARTIAL PRESSURE CO2 41.1 mmHg (35.0-45.0); ABG PARTIAL PRESSURE O2 82.3 mmHg (75.0-100.0); ABG STANDARD HCO3 20.6 MEQ/L (22.0-26.0); ABG TOTAL CO2 22.3 MEQ/L (22.0-29.0); ABG pH (ARTERIAL) 7.326 UNITS (7.350-7.450)
[2020-12-15 09:45] LABS: MAGNESIUM LEVEL 1.8 MG/DL (1.8-2.4); PHOSPHORUS LEVEL 1.9 MG/DL (2.5-4.9)
--- NOTE | 2020-12-15 11:10 | REP ---
INDICATION: [place] donor. COMPARISON: Multiple the latest earlier today TECHNIQUE: Portable FINDINGS: The technique utilized in obtaining the radiograph has magnified the cardiac silhouette and accentuated the interstitial markings. The endotracheal tube is again seen in satisfactory position. There is no change in appearance of the nasogastric tube. The proximal port remains in or just distal to the gastroesophageal junction. The cardiomediastinal silhouette is unchanged. Since the last examination there is been an increase in the interstitial markings with a haziness throughout the vascularity but no definite patchy parenchymal opacity or pleural effusion has developed IMPRESSION: Slight increase in the appearance of the interstitial markings and accentuated by portable technique. There are no other significant changes. <Electronically signed by Salvatore Rabago > 12/15/20 [id number]
[2020-12-15 13:32] LABS: HEMATOCRIT 37.7 % (42.0-52.0); HEMOGLOBIN 12.1 g/dl (13.5-17.5); MEAN CORPUSCULAR HEMOGLOBIN 32.1 pg (27.0-33.0); MEAN CORPUSCULAR HGB CONC 32.1 g/dl (32.0-36.5); PLATELET COUNT, AUTOMATED 191 10^3/uL (150-450); RED BLOOD COUNT 3.77 10^6/uL (4.30-6.10); WHITE BLOOD COUNT 13.9 10^3/uL (4.0-10.0)
[2020-12-15 13:45] LABS: APPEARANCE, URINE TURBID (CLEAR); BACTERIA, URINE AUTO 1+ (NEGATIVE); BILIRUBIN, URINE AUTO NEGATIVE (NEGATIVE); BLOOD, URINE BLOOD 1+ (NEGATIVE); COLOR, URINE YELLOW (YELLOW); GLUCOSE, URINE (UA) AUTO 1+ mg/dL (NEGATIVE); INR 1.2; KETONE, URINE AUTO NEGATIVE (NEGATIVE); LEUKOCYTE ESTERASE, URINE AUTO NEGATIVE (NEGATIVE); MUCUS, URINE SMALL (NEGATIVE); NITRITE, URINE AUTO NEGATIVE (NEGATIVE); PROTEIN, URINE AUTO NEGATIVE (NEGATIVE); PROTHROMBIN TIME 15.6 SECONDS (12.7-14.5); RBC, URINE AUTO 5 /HPF (0-3); SPECIFIC GRAVITY URINE AUTO 1.015 (1.002-1.035); SQUAMOUS EPITHELIAL CELL UR AU 0 /HPF (0-6); URIC ACID CRYSTALS SMALL; UROBILINOGEN, URINE AUTO 0.2 mg/dL (0.0-2.0); WBC, URINE AUTO 4 /HPF (0-3)
[2020-12-15 13:46] LABS: PARTIAL THROMBOPLASTIN TIME 42.7 SECONDS (25.9-37.0)
[2020-12-15 14:04] LABS: ALBUMIN 2.2 GM/DL (3.2-5.2); ALT/SGPT 95 U/L (12-78); BILIRUBIN,DIRECT 0.1 MG/DL (0.0-0.2); BILIRUBIN,TOTAL 0.3 MG/DL (0.2-1.0); BLOOD UREA NITROGEN 16 MG/DL (7-18); CALCIUM LEVEL 7.7 MG/DL (8.5-10.1); CARBON DIOXIDE LEVEL 25 MEQ/L (21-32); CHLORIDE LEVEL 117 MEQ/L (98-107); CREATININE FOR GFR 1.05 MG/DL (0.70-1.30); GLOMERULAR FILTRATION RATE > 60.0 (>56); GLUCOSE, FASTING 223 MG/DL (70-100); MAGNESIUM LEVEL 1.8 MG/DL (1.8-2.4); PHOSPHORUS LEVEL 2.6 MG/DL (2.5-4.9); POTASSIUM SERUM 4.1 MEQ/L (3.5-5.1); SODIUM LEVEL 146 MEQ/L (136-145); TOTAL PROTEIN 5.3 GM/DL (6.4-8.2)
[2020-12-15 14:17] LABS: LYMPHOCYTES 5 % (16-44); MONOCYTES 5 % (0-5); NEUTROPHILS 90 % (28-66); PLATELET ESTIMATE NORMAL (NORMAL)
[2020-12-15] MEDS ORDERED: VANCOMYCIN HCL 1,000 MG in IV FLUID PLACE HOLDER 1 EA IV SCH (18:15)
[2020-12-15] MEDS ORDERED: VANCOMYCIN HCL 1,500 MG in IV FLUID PLACE HOLDER 1 EA IV ONE (18:15)
[2020-12-15] MEDS ORDERED: VANCOMYCIN HCL 750 MG, VIAL MATE ADAPTER 1 EACH in NS 250 ML IV ONE ×2 (19:00→20:00)
[2020-12-15 20:10] LABS: ABG BASE EXCESS -1.1 (-2.0-2.0); ABG HCO3 24.2 MEQ/L (22.0-26.0); ABG O2 SATURATION 97.9 % (95.0-99.0); ABG PARTIAL PRESSURE CO2 43.1 mmHg (35.0-45.0); ABG PARTIAL PRESSURE O2 104.1 mmHg (75.0-100.0); ABG STANDARD HCO3 23.5 MEQ/L (22.0-26.0); ABG TOTAL CO2 25.6 MEQ/L (22.0-29.0); ABG pH (ARTERIAL) 7.368 UNITS (7.350-7.450)
[2020-12-15 20:11] LABS: HEMATOCRIT 35.8 % (42.0-52.0); HEMOGLOBIN 11.3 g/dl (13.5-17.5); MEAN CORPUSCULAR HEMOGLOBIN 31.5 pg (27.0-33.0); MEAN CORPUSCULAR HGB CONC 31.6 g/dl (32.0-36.5); MEAN CORPUSCULAR VOLUME 99.7 fl (80.0-96.0); PLATELET COUNT, AUTOMATED 181 10^3/uL (150-450); RED BLOOD COUNT 3.59 10^6/uL (4.30-6.10)
[2020-12-15 20:27] LABS: INR 1.21; PROTHROMBIN TIME 15.7 SECONDS (12.7-14.5)
[2020-12-15 20:28] LABS: PARTIAL THROMBOPLASTIN TIME 47.3 SECONDS (25.9-37.0)
--- NOTE | 2020-12-15 20:45 | REPVR ---
PROCEDURE INFORMATION: Exam: US Abdomen, Limited; Right Upper Quadrant Exam date and time: 12/15/2020 8:04 PM Age: 50 years old Clinical indication: Screening exam; Other: Organ donor; Additional info: Steatosis. Please put image on a disk. TECHNIQUE: Imaging protocol: US abdomen. Real time ultrasound with image documentation. Limited exam focused on the right upper quadrant. COMPARISON: CT ABD PELVIS W/O CONTRAST 12/12/2020 5:22 PM FINDINGS: Liver: Normal. No masses. Gallbladder: Minimal pericholecystic fluid. Gallbladder otherwise unremarkable. Common bile duct: The common bile duct measures 6.1 mm. No mass or choledocholithiasis. Pancreas: Visualized pancreas is unremarkable. Right kidney: Right kidney measures 13.7 x 6.7 x 5.4 cm. IMPRESSION: 1. Minimal pericholecystic fluid. Gallbladder otherwise unremarkable. 2. Otherwise unremarkable. Electronically signed by: Marcio Capone On 12/15/2020 20:44:54 PM
[2020-12-15 20:47] LABS: ATYPICAL LYMPH 1 % (0-5); LYMPHOCYTES 3 % (16-44); MONOCYTES 4 % (0-5); NEUTROPHILS 67 % (28-66)
[2020-12-15 20:48] LABS: ALBUMIN 2.1 GM/DL (3.2-5.2); ALT/SGPT 86 U/L (12-78); BILIRUBIN,DIRECT < 0.1 MG/DL (0.0-0.2); BILIRUBIN,TOTAL 0.3 MG/DL (0.2-1.0); BLOOD UREA NITROGEN 15 MG/DL (7-18); CALCIUM LEVEL 7.7 MG/DL (8.5-10.1); CARBON DIOXIDE LEVEL 24 MEQ/L (21-32); CHLORIDE LEVEL 114 MEQ/L (98-107); GLOMERULAR FILTRATION RATE > 60.0 (>56); GLUCOSE, FASTING 182 MG/DL (70-100); MAGNESIUM LEVEL 1.7 MG/DL (1.8-2.4); PHOSPHORUS LEVEL 2.2 MG/DL (2.5-4.9); PLATELET ESTIMATE NORMAL (NORMAL); POTASSIUM SERUM 4.5 MEQ/L (3.5-5.1); SODIUM LEVEL 147 MEQ/L (136-145); TOTAL PROTEIN 5.1 GM/DL (6.4-8.2)
[2020-12-15 20:48] LABS: ABG BASE EXCESS -3.2 (-2.0-2.0); ABG HCO3 22.1 MEQ/L (22.0-26.0); ABG O2 SATURATION 99.7 % (95.0-99.0); ABG PARTIAL PRESSURE CO2 40.6 mmHg (35.0-45.0); ABG PARTIAL PRESSURE O2 426.5 mmHg (75.0-100.0); ABG STANDARD HCO3 21.8 MEQ/L (22.0-26.0); ABG TOTAL CO2 23.3 MEQ/L (22.0-29.0); ABG pH (ARTERIAL) 7.353 UNITS (7.350-7.450)
[2020-12-15] MEDS: NOREPINEPHRINE BITARTRATE 8 MG in D5W 492 ML IV SCH (21:10)
[2020-12-16] VITALS (36 sets, daily range): BP systolic 105–293; BP diastolic 56–295
[2020-12-16] MEDS: ALBUTEROL SULFATE 2.5 MG/0.5 ML INH NEB SOLN NEB SCH ×4 (00:38→11:11)
[2020-12-16 02:15] LABS: BASO % 0.1 % (0.0-1.0); HEMATOCRIT 34.2 % (42.0-52.0); HEMOGLOBIN 10.9 g/dl (13.5-17.5); LYMPH # 0.8 10^3/uL (1.5-5.0); LYMPH % 4.5 % (24.0-44.0); MEAN CORPUSCULAR HEMOGLOBIN 31.3 pg (27.0-33.0); MEAN CORPUSCULAR HGB CONC 31.9 g/dl (32.0-36.5); MEAN CORPUSCULAR VOLUME 98.3 fl (80.0-96.0); MONO # 0.9 10^3/uL (0.0-0.8); MONO % 5.1 % (2.0-8.0); NEUTROPHILS # 15.8 10^3/uL (1.5-8.5); NEUTROPHILS % 89.6 % (36.0-66.0); PLATELET COUNT, AUTOMATED 183 10^3/uL (150-450); RED BLOOD COUNT 3.48 10^6/uL (4.30-6.10); WHITE BLOOD COUNT 17.7 10^3/uL (4.0-10.0)
[2020-12-16 02:26] LABS: INR 1.13
[2020-12-16] MEDS: LEVOTHYROXINE SODIUM IV SCH ×2 (02:39→09:30)
[2020-12-16] MEDS: D5W IV SCH ×2 (02:39→09:30)
[2020-12-16 02:56] LABS: ALBUMIN 2.1 GM/DL (3.2-5.2); ALT/SGPT 80 U/L (12-78); BILIRUBIN,DIRECT 0.1 MG/DL (0.0-0.2); BILIRUBIN,TOTAL 0.4 MG/DL (0.2-1.0); BLOOD UREA NITROGEN 15 MG/DL (7-18); CALCIUM LEVEL 7.6 MG/DL (8.5-10.1); CARBON DIOXIDE LEVEL 25 MEQ/L (21-32); CHLORIDE LEVEL 115 MEQ/L (98-107); CREATININE FOR GFR 0.91 MG/DL (0.70-1.30); GLOMERULAR FILTRATION RATE > 60.0 (>56); GLUCOSE, FASTING 194 MG/DL (70-100); PHOSPHORUS LEVEL 2.4 MG/DL (2.5-4.9); POTASSIUM SERUM 4.3 MEQ/L (3.5-5.1); SODIUM LEVEL 144 MEQ/L (136-145); TOTAL PROTEIN 5.2 GM/DL (6.4-8.2)
[2020-12-16] MEDS: PIPERACILLIN/TAZOBACTAM SOD 3.375 GM in D5W MINI-BAG PLUS 50 ML IV SCH ×2 (05:16→11:40)
[2020-12-16] MEDS: NS 0.45% 1,000 ML IV SCH ×2 (06:16→11:45)
[2020-12-16] MEDS ORDERED: VANCOMYCIN HCL 1,000 MG, VIAL MATE ADAPTER 1 EACH in NS 250 ML IV SCH (07:00)
[2020-12-16 07:04] LABS: ABG BASE EXCESS -2.9 (-2.0-2.0); ABG HCO3 21.9 MEQ/L (22.0-26.0); ABG O2 SATURATION 99.1 % (95.0-99.0); ABG PARTIAL PRESSURE CO2 37.7 mmHg (35.0-45.0); ABG PARTIAL PRESSURE O2 135.4 mmHg (75.0-100.0); ABG STANDARD HCO3 22.1 MEQ/L (22.0-26.0); ABG pH (ARTERIAL) 7.381 UNITS (7.350-7.450)
[2020-12-16 07:36] LABS: ABG O2 SATURATION 99.7 % (95.0-99.0)
[2020-12-16 07:40] LABS: ABG BASE EXCESS -2.2 (-2.0-2.0); ABG HCO3 22.4 MEQ/L (22.0-26.0); ABG PARTIAL PRESSURE CO2 37.6 mmHg (35.0-45.0); ABG PARTIAL PRESSURE O2 456.1 mmHg (75.0-100.0); ABG STANDARD HCO3 22.7 MEQ/L (22.0-26.0); ABG TOTAL CO2 23.6 MEQ/L (22.0-29.0); ABG pH (ARTERIAL) 7.393 UNITS (7.350-7.450)
[2020-12-16 07:42] LABS: BASO % 0.1 % (0.0-1.0); EOS % 0.1 % (0.0-3.0); HEMOGLOBIN 10.5 g/dl (13.5-17.5); MEAN CORPUSCULAR HEMOGLOBIN 32.4 pg (27.0-33.0); MEAN CORPUSCULAR HGB CONC 32.8 g/dl (32.0-36.5); MEAN CORPUSCULAR VOLUME 98.8 fl (80.0-96.0); MONO # 0.8 10^3/uL (0.0-0.8); MONO % 5.3 % (2.0-8.0); NEUTROPHILS # 13.9 10^3/uL (1.5-8.5); NEUTROPHILS % 87.6 % (36.0-66.0); PLATELET COUNT, AUTOMATED 172 10^3/uL (150-450); RED BLOOD COUNT 3.24 10^6/uL (4.30-6.10); WHITE BLOOD COUNT 15.9 10^3/uL (4.0-10.0)
[2020-12-16 08:07] LABS: ALT/SGPT 72 U/L (12-78); BILIRUBIN,DIRECT 0.1 MG/DL (0.0-0.2); BILIRUBIN,TOTAL 0.4 MG/DL (0.2-1.0); BLOOD UREA NITROGEN 14 MG/DL (7-18); CALCIUM LEVEL 7.5 MG/DL (8.5-10.1); CARBON DIOXIDE LEVEL 25 MEQ/L (21-32); CHLORIDE LEVEL 115 MEQ/L (98-107); CREATININE FOR GFR 0.84 MG/DL (0.70-1.30); GLOMERULAR FILTRATION RATE > 60.0 (>56); GLUCOSE, FASTING 180 MG/DL (70-100); PHOSPHORUS LEVEL 2.2 MG/DL (2.5-4.9); POTASSIUM SERUM 4.2 MEQ/L (3.5-5.1); SODIUM LEVEL 144 MEQ/L (136-145)
[2020-12-16 08:11] LABS: APPEARANCE, URINE MANUAL TURBID (CLEAR); BILIRUBIN, URINE MANUAL NEGATIVE (NEGATIVE); BLOOD URINE MANUAL TRACE (NEGATIVE); COLOR, URINE MANUAL YELLOW (YELLOW); GLUCOSE, URINE (UA) MANUAL NEGATIVE (NEGATIVE); KETONE, URINE MANUAL NEGATIVE (NEGATIVE); LEUKOCYTE ESTERASE, URINE MAN NEGATIVE (NEGATIVE); NITRITE, URINE MANUAL NEGATIVE (NEGATIVE); PROTEIN, URINE MANUAL NEGATIVE (NEGATIVE); SPECIFIC GRAVITY,URINE MANUAL 1.016 (1.002-1.035); UROBILINOGEN, URINE MANUAL NORMAL (NORMAL)
[2020-12-16 08:12] LABS: RBC, URINE 0-1 /hpf (0-3); WBC, URINE 0-1 /hpf (0-3)
[2020-12-16 08:13] LABS: BACTERIA, URINE NONE SEEN; SQUAMOUS EPITHELIAL CELL URINE NONE SEEN /hpf (SMALL AMT); URIC ACID CRYSTALS, URINE LARGE AMOUNT /hpf
[2020-12-16 08:14] LABS: HYALINE CAST, URINE NONE SEEN /lpf (0-1)
[2020-12-16 08:22] LABS: INR 1.19; PROTHROMBIN TIME 15.5 SECONDS (12.7-14.5)
[2020-12-16 08:23] LABS: PARTIAL THROMBOPLASTIN TIME 47.1 SECONDS (25.9-37.0)
--- NOTE | 2020-12-16 08:44 | REP ---
INDICATION: finger [place] donor. COMPARISON: Comparison chest x-ray December 15, 2020. TECHNIQUE: Portable upright AP chest radiograph. FINDINGS: Endotracheal tube is seen in good position at the level of the proximal clavicles unchanged. NG tube enters the left upper quadrant consistent with position in the gastric fundus also unchanged. Monitoring electrodes are seen. The heart is mildly enlarged as before. Interstitial markings are increased in the bases, right more so than left. Platelike atelectasis suspected in the right base. Otherwise no infiltrate seen. IMPRESSION: Platelike atelectasis suspected in the right base. Mildly prominent interstitial markings. Endotracheal and nasogastric tubes remain in place. <Electronically signed by Ronaldo Merrill > 12/16/20 [id number]
[2020-12-16] MEDS ORDERED: HEPARIN SOD (PORCINE) 5000UNITS/ML 1ML VIAL/SYRINGE As Ordered ONE (13:01)
[2020-12-16] MEDS ORDERED: MANNITOL 25% 12.5 GM/50 ML VIAL (J2150) As Ordered ONE (13:01)
[2020-12-16] MEDS ORDERED: FILTER 1.2 MICRON (ADULT TPN/MANNITOL/REMICADE) XX ONE (13:01)
[2020-12-16 13:52] LABS: ABG BASE EXCESS 0.3 (-2.0-2.0); ABG HCO3 25.6 MEQ/L (22.0-26.0); ABG O2 SATURATION 97.8 % (95.0-99.0); ABG PARTIAL PRESSURE O2 109.5 mmHg (75.0-100.0); ABG STANDARD HCO3 24.8 MEQ/L (22.0-26.0); ABG TOTAL CO2 26.9 MEQ/L (22.0-29.0); ABG pH (ARTERIAL) 7.382 UNITS (7.350-7.450)
[2020-12-16 14:07] LABS: INR 1.21; PROTHROMBIN TIME 15.7 SECONDS (12.7-14.5)
[2020-12-16 14:08] LABS: PARTIAL THROMBOPLASTIN TIME 45.8 SECONDS (25.9-37.0)
[2020-12-16 14:26] LABS: BASO % 0.2 % (0.0-1.0); EOS # 0.1 10^3/uL (0.0-0.5); EOS % 0.4 % (0.0-3.0); HEMATOCRIT 30.2 % (42.0-52.0); HEMOGLOBIN 9.6 g/dl (13.5-17.5); LYMPH # 0.9 10^3/uL (1.5-5.0); LYMPH % 6.6 % (24.0-44.0); MEAN CORPUSCULAR HEMOGLOBIN 31.4 pg (27.0-33.0); MEAN CORPUSCULAR HGB CONC 31.8 g/dl (32.0-36.5); MEAN CORPUSCULAR VOLUME 98.7 fl (80.0-96.0); MONO # 0.6 10^3/uL (0.0-0.8); MONO % 4.3 % (2.0-8.0); NEUTROPHILS # 11.5 10^3/uL (1.5-8.5); NEUTROPHILS % 87.6 % (36.0-66.0); PLATELET COUNT, AUTOMATED 181 10^3/uL (150-450); RED BLOOD COUNT 3.06 10^6/uL (4.30-6.10); WHITE BLOOD COUNT 13.1 10^3/uL (4.0-10.0)
[2020-12-16 14:45] LABS: BLOOD UREA NITROGEN 12 MG/DL (7-18); CALCIUM LEVEL 7.6 MG/DL (8.5-10.1); CARBON DIOXIDE LEVEL 26 MEQ/L (21-32); CHLORIDE LEVEL 113 MEQ/L (98-107); CREATININE FOR GFR 0.76 MG/DL (0.70-1.30); GLOMERULAR FILTRATION RATE > 60.0 (>56); GLUCOSE, FASTING 140 MG/DL (70-100); POTASSIUM SERUM 3.8 MEQ/L (3.5-5.1); SODIUM LEVEL 143 MEQ/L (136-145)
[2020-12-16] MEDS ORDERED: PHENYLephrine 500MCG 5ML (100MCG/ML) SYRINGE As Ordered ONE (15:01)
[2020-12-16] MEDS ORDERED: fentaNYL 250 MCG/5 ML INJECTION (J3010) As Ordered ONE (15:05)
== END 2020-12-14 23:21 | disposition expired ==
LOC: M ICUDONOR 18:59 → M ICU 19:40 → M ICUDONOR 19:40 → M ICU 23:21
DX: Z00.5 Encounter for examination of potential donor of organ and tissue (principal)